=== PATIENT | male | born 1945 | race Caucasian/White ===

== ENCOUNTER 2017-11-22 00:23 | Observation (INO) | payer MEDICARE, SELFPAY ==
[2017-11-22] MEDS ORDERED: Aspirin 325 MG TAB ONE (00:54)
[2017-11-22] MEDS ORDERED: Nitroglycerin 2% Ointment 1 INCH/1 GM Packet ONE (00:54)
[2017-11-22 01:19] LABS: Troponin I 0.158 ng/mL (< 0.028)
[2017-11-22 02:55] VITALS: BMI 30.3
[2017-11-22] MEDS ORDERED: Gabapentin 400 MG CAP PO SCH ×2 (03:15→10:15)
[2017-11-22 04:29] LABS: Troponin I 0.143 ng/mL (< 0.028)
[2017-11-22] MEDS ORDERED: traZODone HCl 50 MG TAB PO PRN (08:31)
[2017-11-22] MEDS ORDERED: HumaLOG 300 UNITS/3 ML VIAL SC PRN (08:35)
[2017-11-22] MEDS ORDERED: Dextrose 5% in Water 1,000 ML IV PRN (08:35)
[2017-11-22] MEDS ORDERED: Dextrose 50% Abboject 50 ML SYRINGE SLOW IVP PRN (08:35)
[2017-11-22] MEDS ORDERED: Furosemide 40 MG/4 ML VIAL SLOW IVP SCH (08:45)
[2017-11-22 08:59] LABS: #Eosinphils 0.2 thou/uL (0.0-0.7); #Lymphocytes 1.7 thou/uL (1.20-3.40); #Neutrophils 5.4 thou/uL (1.40-6.50); %Basophils 0.6 % (0.0-1.0); %Eosinophils 2.5 % (0.0-10.0); %Lymphocytes 20.5 % (21.0-51.0); %Monocytes 11.5 % (0.0-10.0); %Neutrophils 64.9 % (42.0-75.0); Hemoglobin 11.5 g/dL (14.0-18.0); Mean Corpuscular HGB CONC 32.2 g/dL (32.0-36.0); Mean Corpuscular Hemoglobin 29.6 pg (27.0-31.0); Mean Corpuscular Volume 91.9 fl (80.0-94.0); Mean Platelet Volume 8.6 fL (7.4-10.4); Platelet Count 203 thou/uL (130-400); RBC Distribution Width 13.7 % (11.5-14.5); Red Blood Cell (RBC) Count 3.89 mill/uL (4.70-6.10); White Blood Cell (WBC) Count 8.3 thou/uL (4.8-10.8)
[2017-11-22 09:19] LABS: Anion Gap 13 mmol/L (10-20); BUN (Urea Nitrogen) 27 mg/dL (8.4-25.7); Calc. Creatinine Clearance 74 mL/min (70-130); Calcium 8.8 mg/dL (7.8-10.44); Carbon Dioxide 25 mmol/L (23-31); Chloride 102 mmol/L (98-107); Estimated GFR-MDRD 51; Glucose 212 mg/dL (80-115); Potassium 4.5 mmol/L (3.5-5.1); Sodium 135 mmol/L (136-145)
--- NOTE | 2017-11-22 09:51 | RAD ---
PORTABLE CHEST ONE VIEW: Date: 11-22-17 Time: 8:46 a.m. History: FINDINGS: There are changes of median sternotomy. The heart is enlarged. The lungs are expanded without focal a reas of consolidation, pneumothorax, gary pulmonary edema or pleural effusions. IMPRESSION: No acute process. POS: DAXA
--- NOTE | 2017-11-22 10:22 | CT ---
CT OF BRAIN PERFORMED WITHOUT CONTRAST ENHANCEMENT: History: Patient fell approximately one hour ago. Hit head on right side. FINDINGS: There is generalized ventricular and sulcal prominence. There are no signs of intracerebral hemorrhag e or extraaxial fluid collections. The mastoid air cells and visualized sinuses are clear. IMPRESSION: No acute intracranial abnormalities. POS: C
[2017-11-22] MEDS: HumaLOG 300 UNITS/3 ML VIAL SC PRN (12:01)
[2017-11-22] MEDS: Gabapentin 400 MG CAP PO SCH ×2 (14:34→20:55)
--- NOTE | 2017-11-22 15:20 | HP ---
DATE OF ADMISSION: 11/22/2017 PRIMARY CARE PHYSICIAN: Asa VINCENT. CHIEF COMPLAINT: Worsening shortness of breath. HISTORY OF PRESENT ILLNESS: Mr. Babin is a 72-year-old male with past medical history of coronary artery disease, congestive heart failure, diabetes mellitus type 2, and dyslipidemia who pre sented to the emergency room with above-mentioned complaint in [place]. History is mainly obtained by the patient himself, who was a rather poor historian. Rest of history is obtained through the art review from the emergency room physician, which is not also much informative. According to Mr. Babin, he has been feeling short of breath for the last 4 or 5 weeks. He reports c ompliance with his medications. He also has noticed some worsening extremity swelling bilaterally. He denies any flu-like symptoms, but then states he has recently had some sore throat which went away within 1 day. He presented to the [facility] with these complaints and his troponin was found to be elevated at 0.135 with BNP of 1730. He had received 1 dose of IV Lasix and was trans ferred to our facility for further evaluation. He had a 12-lead EKG done in the emergency room at [facility], which showed sinus rhythm with first degree AV block with some PACs. He was given aspiri n and transdermal nitroglycerin and was transferred on the floor for further evaluation and care. At the time of my examination, the patient is feeling a little bit better; however, he is complaining of significant lower extremity pain that is neuropathic in nature and chronic for the patient. He a lso apparently passed out standing in front of the sink earlier this morning and says that he did hit his head. Since then he has undergone a CT scan of the brain which is negative for any sort of hemo rrhage. The patient reports that he easily gets anxiety and panic attacks and had 2 panic attacks actually th is morning. He has calmed down since his home medications have been restarted including Celexa and N eurontin. PAST MEDICAL HISTORY: 1. Coronary artery disease status post CABG, unknown as to which vessels and what was the year. 2. History of congestive heart failure, unknown type. 3. Diabetes mellitus type 2. 4. Dyslipidemia. 5. Hypertension. PAST SURGICAL HISTORY: 1. Right foot surgery. 2. History of CABG x4 vessels in 2006 as per the ER note. PSYCHIATRIC HISTORY: Includes depression. SOCIAL HISTORY: He used to smoke cigarettes, but has quit more than 10 years ago. No history of alc ohol or drug abuse. He is and lives with his and reports independent with ADLs and IADL s. FAMILY HISTORY: He denies any premature coronary artery disease or stroke running in his family. ALLERGIES: Include NEOSPORIN OINTMENT. CURRENT MEDICATIONS: NovoLog 52 units b.i.d., this dose needs to be further confirmed; Lantus unknow n dose; metoprolol succinate 25 mg daily; Celexa 40 mg daily; trazodone 25 mg daily at bedtime as nee ded; lisinopril 20 mg p.o. b.i.d.; Lasix 40 mg daily; melatonin 3 mg at bedtime; B12 daily; aspirin 8 1 mg daily; Crestor 40 mg daily; Imdur ER 30 mg daily; gabapentin 1200 mg p.o. t.i.d.; Ambien as need ed at night; and potassium chloride 10 mEq daily. LABORATORY DATA AND IMAGING DATA: Labs are repeated by myself this morning and include a CBC with WB C of 8.3, platelet count 203, hemoglobin 11.5. Serum chemistries: Sodium 135, BUN 27, creatinine 1. 38 with unknown baseline. Blood sugar anywhere from 200-300. Troponin 0.15 with repeat troponin of 0.143. BNP is 1863. Chest x-ray does not show any overt edema, infiltrate or pleural effusion by my review. PHYSICAL EXAMINATION: VITAL SIGNS: Most recent temperature 98.1, pulse of 72, respirations 20, saturating 96% on room air, and blood pressure 93/62. GENERAL: He was leaning on the side of the bed on the floor when I walked into the room and he repor leigh ann that he is "stretching his legs." He does not appear to be in any acute distress, but is rather sleepy and easily falling asleep while talking to me. Reportedly, he had just taken his "home dose o f the Neurontin." HEENT: Mucous membranes moist and pink. No oropharyngeal exudate or erythema. Head is normocephali c, atraumatic. Pupils are equal, reactive to light and accommodation. Extraocular movement intact. NECK: Supple without any lymphadenopathy, JVD or bruit. CHEST: Clear to auscultation without any wheezing, rales or rhonchi. CARDIOVASCULAR: Rhythm is regular without any murmur, rubs or gallops. ABDOMEN: Soft, nontender, and nondistended. Some abdominal wall edema is palpated. EXTREMITIES: Showed +2 pitting edema bilaterally extending from the toes to almost to his knee with some mild chronic venostasis changes in the skin of the legs. NEUROLOGIC: Examination is nonfocal. SKIN: Free of any rashes or bruises. I feel warm and dry to touch. PSYCHIATRIC: Normal. IMPRESSION AND PLAN: 1. Dyspnea. Most likely acute congestive heart failure exacerbation. No records are available for this patient as most of his care was obtained in [place] with the [employer] law clerk named Magalie. The p eloise could not tell me how to spell that name. Nevertheless, we will go ahead and obtain a transth oracic echocardiogram given the fact that his cardiac enzymes are borderline elevated and also consul t Cardiology for further recommendations. At this time, we will go ahead and give him another dose o f IV Lasix and resume his aspirin, beta igor, and statin at this time. Continue to trend serial c ardiac enzymes. 2. Syncope, unclear etiology. We will check orthostatics. Most likely this is due to somnolence fr om the Neurontin he has received in the morning. He will be monitored on telemetry floor for any arr hythmias as well. Also, obtain a carotid Doppler ultrasound. 3. Lower extremity edema. We will rule out deep venous thrombosis and get Doppler ultrasound for th e legs, most likely these symptoms are because of him being in the fluid overload. 4. Hypertension. Restart home medications as above. 5. History of coronary artery disease, status post coronary artery bypass graft. We will resume his home medications. 6. Acute kidney insufficiency. The patient's baseline creatinine is unknown. Most likely, he has c hronic kidney disease due to diabetes. However, we will monitor closely as he is going to be diurese d. 7. Hyponatremia. We will monitor it clinically. Most likely this is secondary to fluid overload fr om acute congestive heart failure. 8. History of anxiety and depression. Resume his home medications. 9. Diabetes mellitus. The patient and his did not seem to remember the correct dose of insulin for him. At this time, we will just cover him with insulin sliding scale and monitor his blood suga rs closely and confirm the dose of his home medications by the pharmacy. 10. Deep venous thrombosis and gastrointestinal prophylaxis. 11. Add p.r.n. medication orders. DISPOSITION: Mr. Babin is being admitted to telemetry unit for acute CHF exacerbation and also for syncope. Further management will depend upon his clinical course and the recommendations from [facility]. Currently, he is being admitted under observation status, which can change depending on his clinical course during hospitalization.
--- NOTE | 2017-11-22 15:55 | ULT ---
BILATERAL LOWER EXTREMITY VENOUS DUPLEX ULTRASOUND INCLUDING COLOR AND SPECTRAL DOPPLER IMAGING: History: 72-year-old male with restless leg syndrome and edema. FINDINGS: Exam performed from groin to ankle including visualized greater saphenous, common femoral, superficia l femoral, profunda femoral, popliteal, trifurcation, and posterior tibial vein regions. There is phasic flow with normal compressibility and normal augmentation. No intraluminal thrombus. IMPRESSION: No evidence for deep venous thrombosis. POS: DAXA
--- NOTE | 2017-11-22 17:14 | ULT ---
CAROTID DUPLEX ULTRASOUND 11/22/17 INDICATION: Syncope. FINDINGS: The image detail is slightly limited due to patient motion. Peak systolic velocity within the right CCA was 68.4 cm/s and the right ICA is 63.8 cm/s. The right I C/CC ratio is 0.93. Peak systolic velocity within the left CCA was 68.8 cm/s and the left ICA is 64.3 cm/s. The left IC/C C ratio is 0.93. Antegrade flow is seen in both vertebral arteries. There is partially calcified atherosclerotic plaque involving the proximal left internal carotid norberto ry. Mild atherosclerotic plaque is seen in the proximal right ICA. IMPRESSION: No hemodynamically significant stenosis. POS: BÁRBARA
[2017-11-22] MEDS ORDERED: cloNIDine 0.1 MG TAB PO PRN (20:34)
[2017-11-22] MEDS ORDERED: Rosuvastatin 20 MG TAB PO SCH (21:00)
[2017-11-22] MEDS ORDERED: Melatonin 3 MG TAB PO SCH (21:00)
[2017-11-22] MEDS ORDERED: Citalopram 20 MG TAB PO SCH (21:00)
[2017-11-22] MEDS ORDERED: Cyanocobalamin (Vitamin B-12) 1,000 MCG TAB PO SCH (21:00)
[2017-11-22] MEDS ORDERED: hydrALAZINE 20 MG/ML VIAL SLOW IVP PRN (22:04)
--- NOTE | 2017-11-22 22:43 | CON ---
DATE OF ADMISSION: 11/22/2017 DATE OF CONSULTATION: 11/22/2017 INDICATION FOR CONSULTATION: A 72-year-old patient who presented with shortness of breath, has a his tory of some congestive heart failure, has a history of cardiomyopathy, history of myocardial infarct ion, and CABG in the past, suffered a myocardial infarction in 2006. He has been followed by the NH. His family says that he has had a recent cardiac catheterization sometime in the last 2 to 3 years and was told some of his grafts were compromised at that time, but there was no intervention that was indicated at that time. He also was advised by the NH facility that he needed to most likely underg o an AICD implant. He has refused to do so. Today, when he arrived, his troponin I was 0.58, it is now increased up to 0.43. He denied any significant chest discomfort at this time, but mainly compla ined of shortness of breath. He noticed recently that he has been complaining of shortness of breath and decreased energy with increasing fatigue, and edema and has a nonhealing wound on the right foot . Apparently, according to his family, the echocardiogram about a year ago showed an ejection fracti on of 30% to 35%. He has had no recent stress testing that he is aware of, but it did have a cardiac catheterization 2-3 years ago and was advised at that time, he may need to undergo further intervent ion, but no further intervention has been performed according to the patient. PAST MEDICAL HISTORY: Significant for coronary artery disease, possible myocardial infarction, bypas s surgery, history of congestive heart failure, and cardiomyopathy, type 2 diabetes, history of hyper tension and history of dyslipidemia. He has had some right foot surgery, also has a history of depre ssion. ALLERGIES: He is allergic to NEOSPORIN. SOCIAL HISTORY: He has a history of tobacco abuse in the past. He stopped many years ago. He drink s occasionally. MEDICATIONS PRIOR TO ADMISSION: Included citalopram, Lasix 40 mg a day, lisinopril 20 mg b.i.d., met oprolol 100 mg b.i.d., trazodone, vitamin B12, Crestor 40 mg a day, aspirin 81 mg a day, melatonin 3 mg q.p.m., isosorbide mononitrate 10 mg as needed p.r.n., potassium 20 mEq q. day, he says he uses on ly as needed, zolpidem 10 mg q.p.m. REVIEW OF SYSTEMS: A 12 point review of systems he complained no vision in the right eye due to prev ious injuries. He said this is something happened in [place]. He also denied any other recent johnson e except for the Pulmonary was noted in the history of present illness. He had no significant chest discomfort. He has had occasional diarrhea for the last couple of days and he has some shortness of breath and has complained of lower extremity edema. PHYSICAL EXAMINATION: GENERAL: Reveals a middle-aged gentleman who is in no acute distress at this time. He does appear t o be at times somewhat confused. He has complains of some leg cramping and otherwise is seems to be relatively comfortable. VITAL SIGNS: Blood pressure was 93/62. He is afebrile. Heart rate is 73 and regular, respiratory r ate 20. HEENT: Shows head to be normocephalic. He did have a previous injury, I believe, as a child and has a large scar on the left anterior and superior part of the skull in the parietal area. CHEST: Clear to auscultation. I do not hear any significant rales, rhonchi, or wheezing. CARDIOVASCULAR: He has a regular rate and rhythm. He does have a systolic murmur at the apex. ABDOMEN: Shows obesity with positive bowel sounds. I do not palpate any masses or tenderness. EXTREMITIES: Showed no clubbing or cyanosis. Pedal pulses are palpable. He does have 2+ lower extr emity edema from above the knee down below including the feet area. SKIN: Warm and dry. NEUROLOGIC: The patient appears to be somewhat slow, but did not find any gross focal motor deficits . His EKG shows a sinus rhythm with a first degree AV heart block, no acute ST segment changes were noted to indicate acute ischemia. He has some nonspecific ST segment changes. IMPRESSION: 1. Elderly gentleman with history of coronary artery disease, bypass surgery and perhaps graft compr omise with worsening of shortness of breath and congestive heart failure symptoms. I believe his BNP also was elevated at 1863. 2. Congestive heart failure symptoms, we will need to have further diuresis and change some of the m edical management to help with his edema and perhaps the congestive heart failure symptoms will impro ve. 3. Also, history of renal insufficiency. Creatinine was 1.38 with a BUN of 27. He is on an ARB. W e will continue this medicine for now. We will follow his BUN and creatinines carefully. 4. Slight abnormality on the cardiac enzymes, which may be due to demand ischemia. 5. History of coronary artery disease and bypass surgery with the most recent cardiac catheterizatio n 2-3 years ago, at which time, he was told he already has some problems and patient becomes more sta ble, most likely the best option for him to undergo repeat cardiac catheterization to evaluate his co ronary artery status. 6. Cardiomyopathy. He has been advised in the past, he needs to undergo an AICD implant. I have be en discussed with by the NH and he may need to reconsider this. We will review his echocardiogram fo r the evaluation of his ejection fraction. 7. History of hyperlipidemia. He is to continue on his medications. 8. Type 2 diabetes, which will be dealt with by the primary care service. At this time, we will be more than happy to continue to follow the patient with you. We will need to manage his medicines. The patient would best be served by undergoing repeat cardiac catheterization . If this is agreeable with the patient and if this is cleared by the NH facility.
[2017-11-22] MEDS: HYDROcodone/Acetaminophen 5/325 mg Tablet PO PRN (22:56)
[2017-11-23] MEDS: Gabapentin 400 MG CAP PO SCH ×2 (08:05→15:19)
[2017-11-23] MEDS ORDERED: Potassium Chloride 10 MEQ TAB PO PRN (08:41)
[2017-11-23] MEDS ORDERED: Aspirin 81 mg Enteric Coated Tablet PO SCH ×2 (09:00→21:00)
[2017-11-23] MEDS ORDERED: Furosemide 40 MG/4 ML VIAL SLOW IVP SCH (09:00)
[2017-11-23] MEDS ORDERED: Lisinopril 20 MG TAB PO SCH (09:00)
[2017-11-23] MEDS: HYDROcodone/Acetaminophen 5/325 mg Tablet PO PRN (09:08)
[2017-11-23 09:42] LABS: Anion Gap 10 mmol/L (10-20); BUN (Urea Nitrogen) 25 mg/dL (8.4-25.7); Calc. Creatinine Clearance 85 mL/min (70-130); Calcium 9.1 mg/dL (7.8-10.44); Carbon Dioxide 30 mmol/L (23-31); Chloride 101 mmol/L (98-107); Estimated GFR-MDRD 60; Glucose 183 mg/dL (80-115); Potassium 4.2 mmol/L (3.5-5.1); Sodium 137 mmol/L (136-145)
--- NOTE | 2017-11-23 11:34 | PDOC.CTH ---
<Lilian Melvin - Last Filed: 11/23/17 11:31> Cardiology Progress Note - Subjective The pt seen and examined. No overnight events. No cardiac complaints. He reported that BLE edema have improved since he received IV Lasix. Discussed with the pt and family about Sleep Apnea and Cpap and CHF clinic - Objective Vital Signs Temp Pulse Resp BP BP BP Pulse Ox 11/23/17 09:08 142/73 H 11/23/17 08:06 97.5 F L 60 18 11/23/17 07:14 97.5 F L 60 18 142/73 H 95 11/23/17 04:07 97.5 F L 60 18 151/74 H 96 Admit Weight 230 lb 1.6 oz Weight 230 lb 1.6 oz 11/22/17 11/23/17 11/24/17 06:59 06:59 06:59 Intake Total 240 765 Output Total 275 1575 Balance -35 -810 - Physical Examination General/Neuro: alert & oriented x3 Neck: no JVD present Lungs: CTA Heart: RRR Abdomen: soft Extremities: other: (2-3+ pitting BLE edema) - Telemetry Telemetry Rhythm: SR - Labs Result Diagrams: 11/22/17 08:45 11/23/17 09:02 Troponin/CKMB Troponin I 0.143 ng/mL (< 0.028) H 11/22/17 04:03 - Assessment/Plan 1. Acute on Chronic Systolic HF - Echo on 11/22/17 showed EF 30-35%; improving with Lasix 40mg IV daily; on ALEX and BBlocker; 2. CAD with Hx of CABG - stable with ALEX, BBlocker, Statin and ASA; possible cardiac cath if the pt agrees and approval from [facility]. 3. CMY - need AICD placement? 4. HTN - stable with current medication 5. Renal insufficiency - improved; cont. monitor 6. Hyperlipidemia - on Statin 7. DM type 2 - managed by PCP 8. Sleep Apnea - He stopped breathing for least 15 sec more than 3 times within 1-2 mins. Explained about SA and Cpap. He might need SA machine in his room MAR reviewed Review of Systems - Review of Systems Constitutional: reports: no symptoms reported EENTM: reports: no symptoms reported Respiratory: reports: no symptoms reported Cardiac (ROS): reports: no symptoms reported ABD/GI: reports: no symptoms reported : reports: no symptoms reported Musculoskeletal: reports: no symptoms reported <Lane Neil - Last Filed: 11/23/17 18:19> Cardiology Progress Note - Objective Vital Signs Temp Pulse Pulse Pulse Resp BP BP 11/23/17 15:35 98.8 F 58 L 15 11/23/17 11:40 97.3 F L 60 16 11/23/17 09:55 61 59 L 140/74 11/23/17 09:08 142/73 H 11/23/17 08:06 97.5 F L 60 18 11/23/17 07:14 97.5 F L 60 18 BP BP BP Pulse Ox Pulse Ox Pulse Ox 11/23/17 15:35 137/61 94 L 11/23/17 11:40 139/67 92 L 11/23/17 09:55 135/67 90 L 95 11/23/17 09:08 11/23/17 08:06 11/23/17 07:14 142/73 H 95 Admit Weight 230 lb 1.6 oz Weight 230 lb 1.6 oz 11/22/17 11/23/17 11/24/17 06:59 06:59 06:59 Intake Total 002 651 2584 Output Total 275 1575 900 Balance -35 810 425 - Labs Result Diagrams: 11/22/17 08:45 11/23/17 09:02 Troponin/CKMB Troponin I 0.143 ng/mL (< 0.028) H 11/22/17 04:03 - Assessment/Plan Pt. seen and eval. by me. I agree with the A/P by the PRESCRIPTIONIST. He will f/u with the [place] clinic. I discussed with him about watching his fluid intake as well as Na intake. He will continue on his home diuretics.
[2017-11-23] MEDS: HumaLOG 300 UNITS/3 ML VIAL SC PRN ×2 (12:37→18:05)
--- NOTE | 2017-11-23 12:55 | PDOC.PN ---
- Subjective Encounter Start Date: 11/23/17 Encounter Start Time: 12:53 Subjective: feels much better. 1 episode of SOB this am -: leg edema is improving.no CP/COUGH - Objective MAR Reviewed: Yes Vital Signs & Weight: Vital Signs (12 hours) Temp Pulse Resp BP BP BP Pulse Ox 11/23/17 11:40 97.3 F L 60 16 139/67 92 L 11/23/17 09:08 142/73 H 11/23/17 08:06 97.5 F L 60 18 11/23/17 07:14 97.5 F L 60 18 142/73 H 95 11/23/17 04:07 97.5 F L 60 18 151/74 H 96 Weight Admit Weight 230 lb 1.6 oz Weight 230 lb 1.6 oz I&O: 11/22/17 11/23/17 11/24/17 06:59 06:59 06:59 Intake Total 240 765 Output Total 275 1575 Balance -35 -810 Result Diagrams: 11/22/17 08:45 11/23/17 09:02 Additional Labs: Accuchecks 11/23/17 11/23/17 11/22/17 10:39 05:43 20:46 POC Glucose 233 H 133 H 259 H 11/22/17 17:09 POC Glucose 151 H Radiology Reviewed by me: Yes (ECHO-EF 30-35%,carotid doppler-no stenosis b/l) Phys Exam - Physical Examination Constitutional: NAD HEENT: PERRLA, moist MMs, sclera anicteric, oral pharynx no lesions Neck: no nodes, no JVD, supple, full ROM Respiratory: no wheezing, no rales, no rhonchi, clear to auscultation bilateral Cardiovascular: RRR, no significant murmur Gastrointestinal: soft, non-tender, no distention, positive bowel sounds Musculoskeletal: pulses present, edema present (improved some) Neurological: non-focal, normal sensation, moves all 4 limbs Psychiatric: normal affect, A&O x 3 Skin: no rash Dx/Plan (1) Acute on chronic systolic CHF (congestive heart failure) Code(s): I50.23 - ACUTE ON CHRONIC SYSTOLIC (CONGESTIVE) HEART FAILURE Status : Acute (2) Demand ischemia Code(s): I24.8 - OTHER FORMS OF ACUTE ISCHEMIC HEART DISEASE Status: Acute (3) CAD (coronary artery disease) Code(s): I25.10 - ATHSCL HEART DISEASE OF [place] CORONARY ARTERY W/O ANG PCTRS Status: Chronic Comment: CABG X4 2006 (4) HTN (hypertension) Code(s): I10 - ESSENTIAL (PRIMARY) HYPERTENSION Status: Chronic (5) HLD (hyperlipidemia) Code(s): E78.5 - HYPERLIPIDEMIA, UNSPECIFIED Status: Chronic (6) Ischemic cardiomyopathy Code(s): I25.5 - ISCHEMIC CARDIOMYOPATHY Status: Chronic (7) DM2 (diabetes mellitus, type 2) Status: Chronic Qualifiers: Diabetes mellitus complication status: with hyperglycemia (8) Obesity (BMI 30.0-34.9) Code(s): E66.9 - OBESITY, UNSPECIFIED Status: Acute - Plan plan discussed w/ family, PT/OT, incentive spirometry, out of bed/ambulate, DVT proph w/SCDs cont diuresis.strict I/Os.daily weights.cardiology following -: Cont ASA,statin,ALEX-I,nitrate,BB. -: will need [facility] -[facility] if EF does'nt improve post [facility] -: family updated & [facility] * .for now, will diurese some more and DC home when ok w cardiology * Blood sugar high. will add Levemir. Pt doesn't rememebr home doses correctly. * Review of Systems - Review of Systems Constitutional: negative: fever, chills, sweats, weakness, malaise, other ENT: negative: Ear Pain, Ear Discharge, Nose Pain, Nose Discharge, Nose Congestion, Mouth Pain, Mouth Swelling, Throat Pain, Throat Swelling, Other Respiratory: SOB with Excertion. negative: Cough, Dry, Shortness of Breath, Hemoptysis, Pleuritic Pain, Sputum, Wheezing Cardiovascular: edema. negative: chest pain, palpitations, orthopnea, paroxysmal nocturnal dyspnea, light headedness, other Gastrointestinal: negative: Nausea, Vomiting, Abdominal Pain, Diarrhea, Constipation, Melena, Hematochezia, Other Genitourinary: negative: Dysuria, Frequency, Incontinence, Hematuria, Retention , Other Musculoskeletal: negative: Neck Pain, Shoulder Pain, Arm Pain, Back Pain, Hand Pain, Leg Pain, Foot Pain, Other Skin: negative: Rash, Lesions, Prakash, Bruising, Other Neurological: negative: Weakness, Numbness, Incoordination, Change in Speech, Confusion, Seizures, Other - Medications/Allergies Allergies/Adverse Reactions: Allergies Allergy/AdvReac Type Severity Reaction Status Date / Time bacitracin Allergy Rash Verified 11/22/17 02:59 [From Neosporin ([id number])] neomycin Allergy Rash Verified 11/22/17 02:59 [From Neosporin ([id number])] polymyxin B Allergy Rash Verified 11/22/17 02:59 [From Neosporin ([id number])] Medications: Current Medications Hydrocodone Bitart/Acetaminophen ([place] 5/325) 1 tab PO Q4H PRN PRN Reason: Pain Last Admin: 11/23/17 09:08 Dose: 1 tab Aspirin (Ecotrin) 81 mg PO DAILY [facility] Last Admin: 11/23/17 08:05 Dose: 81 mg Aspirin (Ecotrin) 81 mg PO HS [facility] Citalopram Hydrobromide (Celexa) 40 mg PO HS [facility] Last Admin: 11/22/17 20:53 Dose: 40 mg Clonidine (Catapres) 0.1 mg PO Q4H PRN PRN Reason: Hypertension Last Admin: 11/22/17 20:55 Dose: 0.1 mg Cyanocobalamin (Vitamin B-12) 500 mcg PO HS [facility] Last Admin: 11/22/17 20:54 Dose: 500 mcg Dextrose/Water (Dextrose 50%) 25 gm SLOW IVP PRN PRN PRN Reason: Hypoglycemia Furosemide (Lasix) 40 mg SLOW IVP DAILY [facility] Last Admin: 11/23/17 08:06 Dose: 40 mg Gabapentin (Neurontin) 1,200 mg PO TID [facility] Last Admin: 11/23/17 08:05 Dose: 1,200 mg Glucagon (Glucagon) 1 mg IM PRN PRN PRN Reason: Hypoglycemia Hydralazine HCl (Apresoline) 10 mg SLOW IVP PRN PRN PRN Reason: SBP GREATER THAN 160 Dextrose/Water (D5w) 1,000 mls @ 0 mls/hr IV .Q0M PRN; As Directed PRN Reason: Hypoglycemia Insulin Human Lispro (Humalog) 0 units SC .MODERATE SLIDING SC PRN PRN Reason: Moderate Correctional Scale Last Admin: 11/22/17 12:01 Dose: 8 unit Insulin Human Lispro (Humalog) 0 units SC .BEDTIME SLIDING SC PRN PRN Reason: Bedtime Correctional Scale Last Admin: 11/22/17 20:56 Dose: 3 unit Isosorbide Mononitrate (Imdur Er) 30 mg PO [facility] Last Admin: 11/22/17 20:54 Dose: 30 mg Lisinopril (Zestril) 20 mg PO BID [facility] Last Admin: 11/23/17 09:08 Dose: 20 mg Melatonin (Melatonin) 3 mg PO [facility] Last Admin: 11/22/17 20:55 Dose: 3 mg Metoprolol Succinate (Toprol Xl) 50 mg PO DAILY [facility] Last Admin: 11/23/17 08:05 Dose: 50 mg Potassium Chloride (Klor-Con 10) 10 meq PO DAILY PRN PRN Reason: leg cramps Rosuvastatin Calcium (Crestor) 40 mg PO [facility] Last Admin: 11/22/17 20:54 Dose: 40 mg Sodium Chloride (Flush - Normal Saline) 10 ml IVF PRN PRN PRN Reason: Saline Flush Trazodone HCl (Desyrel) 25 mg PO HSPRN PRN PRN Reason: Insomnia
[2017-11-23 15:40] VITALS: BP 137/61; TEMP 98.8
[2017-11-23] MEDS ORDERED: Lisinopril 10 MG TAB PO SCH (21:00)
[2017-11-23] MEDS ORDERED: Insulin Detemir 100 UNITS/ML 10 UNITS in Pre-Filled Syringe 1 EACH SC SCH (21:00)
--- NOTE | 2017-11-24 12:35 | DIS ---
DATE OF ADMISSION: 11/22/2017 DATE OF DISCHARGE: 11/23/2017 CONDITION AT THE TIME OF DISCHARGE: Stable and improved. PRIMARY CARE PHYSICIAN: [facility] in [place]. DISCHARGE DIAGNOSES: 1. Acute on chronic systolic congestive heart failure. 2. Demand ischemia. 3. History of coronary artery disease status post coronary artery bypass graft in the past. 4. Hypertension. 5. Dyslipidemia. 6. Ischemic cardiomyopathy. 7. Diabetes mellitus type 2. 8. Obesity with a body mass index between 30 and 35. DISCHARGE MEDICATIONS: Resumed home medications as follows: Humalog insulin; Lantus insulin as per the home dose, unknown at this time; Toprol-XL 25 mg daily, Celexa 40 mg daily, trazodone 25 mg daily at bedtime, lisinopril 20 mg p.o. b.i.d., Lasix 40 mg daily, melatonin at bedtime, B12 of 500 mcg da linus, aspirin 81 mg daily, Crestor 40 mg daily, Imdur 30 mg daily, gabapentin 1200 mg p.o. t.i.d., Amb ien as needed, Klor-Con 10 mEq daily as needed. PROCEDURES DONE IN THE HOSPITAL: Include, 1. Transthoracic echocardiogram, which shows EF 30-35% with moderate enlargement of the right atrium and mild to moderate tricuspid regurgitation. 2. CT scan of the brain after the patient sustained a fall which was negative for any acute intracra nial abnormalities. 3. Carotid Doppler ultrasound, which did not show any hemodynamically significant stenosis. Lower e xtremity Dopplers which are negative for DVT bilaterally. CONSULTATIONS INHOUSE: Cardiology, Dr. Neil. HISTORY OF PRESENT ILLNESS: Mr. Babin is a 72-year-old male with past medical history of congestive heart failure, coronary artery disease, diabetes, and hypertension with his care received in [facility] who presented to the emergency room with complaints of worsening shortness of breath. He was found to be in acute CHF exacerbation with elevated BNP and borderline elevated troponin. He was admitted under observation status on telemetry unit. Please see admission history and physical f or further details. HOSPITAL COURSE: The patient was diuresed with good results and he was off of oxygen shortly after h is hospitalization. Cardiology was consulted and echocardiogram was repeated. We do not have his re cords from the [facility] with regards to his past cardiac health. However, the patient and family told us t hat he has known history of low ejection fraction. Echo done here confirmed this as well. The patie nt was seen by Cardiology who recommended a cardiac catheterization, but the patient and family decid ed to follow with their auto machinist at [facility] because of the insurance issues. He was diuresed and was back to be euvolemic and baseline. He was discharged with resumption of his home medications. Once again, I have discussed this with the patient and his that they do need to follow up with a auto machinist in [facility] again for a cardiac catheterization and possible AICD placement. The asad holguin has been discharged on aspirin, beta igor, ALEX inhibitor and among other medications. The patient was seen and examined prior to discharge. Please see the hospitalist's progress note fro m the date of discharge for further details including [id number] interaction.
== END 2017-11-23 19:13 | disposition home or self-care (01) ==
LOC: ERS 00:23 → 2SW 00:47
PROVIDERS: ADMIT Internal Medicine Infectious Disease; ATTEND Internal Medicine Infectious Disease
DX: I11.0 Hypertensive heart disease with heart failure (principal); I50.23 Acute on chronic systolic (congestive) heart failure; I25.10 Atherosclerotic heart disease of native coronary artery without angina pectoris; E78.5 Hyperlipidemia, unspecified; I25.5 Ischemic cardiomyopathy; E11.9 Type 2 diabetes mellitus without complications; E66.9 Obesity, unspecified; Z68.30 Body mass index [BMI] 30.0-30.9, adult; Z88.1 Allergy status to other antibiotic agents; Z79.82 Long term (current) use of aspirin; Z79.4 Long term (current) use of insulin; Z79.899 Other long term (current) drug therapy; Z95.1 Presence of aortocoronary bypass graft; Z98.890 Other specified postprocedural states
CPT/HCPCS: 36415; 36416; 70450; 71045; 80048; 83880; 84484; 85025; 93005; 93306; 93798; 93880; 93970; 96374; 96376; G0378; J1815; J1940

== ENCOUNTER 2017-12-14 09:55 | Observation (INO) | payer MEDICARE, OTHER, SELFPAY ==
[2017-12-14] MEDS ORDERED: Gabapentin 400 MG CAP PO SCH (10:30)
[2017-12-14] MEDS ORDERED: Ondansetron HCl/PF 4 MG/2 ML Vial IVP PRN (12:27)
[2017-12-14] MEDS ORDERED: Acetaminophen 325 MG TAB PO PRN (12:27)
[2017-12-14] MEDS ORDERED: Dextrose 5% in Water 1,000 ML IV PRN (12:27)
[2017-12-14] MEDS ORDERED: Dextrose 50% Abboject 50 ML SYRINGE SLOW IVP PRN (12:27)
--- NOTE | 2017-12-14 12:40 | HP ---
PRIMARY CARE PROVIDER: [facility] in [place]. Transfer from [place] [facility] to [facility] ED and referral to [facility] for hypoglycemia. HISTORY OF PRESENT ILLNESS: The patient was found down this morning taken to the emergency room, blo od sugar was undetectable. He was given IV D50 until sugar came up. The patient awoke, he was appro priate. He was transferred here for continuing monitoring. Blood sugar at the time of admission in our hospital is 84. The patient has stable shortness of breath, no chest pain, sleeps flat, occasion ally wakes up short of breath, has chronic swelling in his legs. PAST MEDICAL HISTORY: The patient recently in our hospital. He has coronary artery disease, post-co ronary artery bypass graft, history of congestive heart failure, EF most recently done in November of this year 30% to 35%, diabetes mellitus type 2, dyslipidemia, and hypertension. PAST SURGICAL HISTORY: Right foot surgery, coronary artery bypass graft in 2006. PSYCHIATRIC HISTORY: Includes major depression. SOCIAL HISTORY: Smoked in the past, quit more than 10 years ago. No history of alcohol. , sae lora with . CODE STATUS: FULL CODE status. is surrogate decision maker. FAMILY HISTORY: No premature coronary artery disease or stroke in the family. ALLERGIES: Topical TRIPLE ANTIBIOTIC OINTMENT. CURRENT MEDICATIONS: He states he takes NovoLog 46 units 3 times a day with meals, Celexa 40 mg a da y, trazodone 25 mg at bedtime, lisinopril 20 mg twice a day, Lasix 40 mg a day, aspirin 81 mg a day, Crestor 40 mg a day, Imdur 30 mg a day, gabapentin 1200 mg 3 times a day, Ambien at bedtime p.r.n., a nd potassium chloride 10 mEq a day. REVIEW OF SYSTEMS: Other than the present illness. GENERAL: No fever, sweats, chills, dizziness or fainting. EYES: No double vision, blurred vision, flashing lights. ENT: Allergies. No ear pain, no nasal bleeding. No trouble swallowing. CARDIAC: No chest pain, no paroxysmal, no orthopnea. Apparently occasionally has PND. RESPIRATIONS: Chronically short of breath. He is active with the usual daily activities of life abo ut the house, etc. No cough, wheezing, asthma. GASTROINTESTINAL: He has had very occasional nausea, no vomiting, no abdominal pain, no diarrhea or melena. GENITOURINARY: No hematuria or dysuria. PSYCHIATRIC: Major depression on multiple meds. NEUROLOGICAL: No strokes, seizures, or focal weakness. SKIN: No bruises, bleeding, or rash. HEME/LYMPH: No tender or swollen lymph nodes in axilla, inguinal or cervical area. PHYSICAL EXAMINATION: GENERAL: Alert, oriented and cooperative. VITAL SIGNS: Blood pressure 156/100, pulse 66, respirations 18, temperature 97.6, and O2 sat 95 on r oom air. HEENT: Pupils equal, round, and reactive to light. Extraocular movements are intact. Sclerae white . Tympanic membranes clear. Nose clear. Oral mucous membranes are wet. NECK: Supple, without jugular venous distention, adenopathy or thyromegaly. CHEST: Clear to auscultation and percussion. HEART: Regular rate and rhythm. First and second heart sounds are clear. There are no murmurs or g allops. ABDOMEN: Soft, bowel sounds normal. No hepatosplenomegaly, no mass, no rebound, no bruits. EXTREMITIES: Reveal no cyanosis or clubbing. He had 2+ edema. PULSES: Carotid, radial, and femoral pulses intact. Pedal pulses diminished. SKIN: Warm and dry without bruises or rash. LYMPHATIC SURVEY: No tender or swollen lymph nodes in axilla, inguinal or cervical area. NEUROLOGIC: Cranial nerves II-XII are intact. Deep tendon reflexes are symmetric. Sensation decrea sed in feet. Studies done at our facility. Blood sugar 88. LABORATORY AND X-RAY FINDINGS: Studies done at our facility - blood sugar 88. Studies done in [place] - Sodium 141, potassium 4.1, BUN 19, creatinine 1.2. CK 0.6, white count 9 .79, hemoglobin 12.6, platelet count 167,000. Multiple x-rays for trauma were done, which were repor leigh ann as negative. EKG: Regular sinus rhythm, nonspecific ST abnormality, reviewed by , first kelly harrell AV block. PLAN: Every 4 hours Accu-Cheks. Continue the D5 at 70 mL an hour. He will continue selected home m edicines. He is aware that he will probably be sent home tomorrow morning. He has a planned cardiac catheterization as an outpatient with the [facility] in [place] on Monday.
[2017-12-14 13:00] VITALS: BMI 30.7
[2017-12-14 15:41] LABS: Troponin I 0.533 ng/mL (< 0.028)
[2017-12-14] MEDS ORDERED: Zolpidem Tartrate 5 MG TAB PO PRN (15:44)
[2017-12-14] MEDS ORDERED: Potassium Chloride 10 MEQ TAB PO PRN (15:44)
[2017-12-14] MEDS ORDERED: traZODone HCl 50 MG TAB PO PRN (15:44)
[2017-12-14] MEDS ORDERED: Aspirin 325 MG TAB PO SCH (16:00)
[2017-12-14] MEDS ORDERED: HumaLOG 300 UNITS/3 ML VIAL SC PRN (17:56)
[2017-12-14] MEDS: Gabapentin 400 MG CAP PO SCH (19:34)
[2017-12-14] MEDS: Lisinopril 20 MG TAB PO SCH (19:35)
[2017-12-14] MEDS ORDERED: Citalopram 10 MG TAB PO SCH (21:00)
[2017-12-14] MEDS ORDERED: Rosuvastatin 20 MG TAB PO SCH (21:00)
[2017-12-14] MEDS ORDERED: Aspirin 81 mg Enteric Coated Tablet PO SCH (21:00)
[2017-12-14 21:42] LABS: Critical Call Chem Troponin I RESULT DECREASING; Troponin I 0.588 ng/mL (< 0.028)
[2017-12-15 05:00] LABS: #Basophils 0.1 thou/uL (0.0-0.2); #Eosinphils 0.1 thou/uL (0.0-0.7); #Lymphocytes 2.1 thou/uL (1.20-3.40); #Monocytes 0.9 thou/uL (0.11-0.59); #Neutrophils 6.6 thou/uL (1.40-6.50); %Basophils 0.7 % (0.0-1.0); %Eosinophils 0.5 % (0.0-10.0); %Lymphocytes 21.7 % (21.0-51.0); %Monocytes 9.7 % (0.0-10.0); %Neutrophils 67.3 % (42.0-75.0); Hemoglobin 11.2 g/dL (14.0-18.0); Mean Corpuscular HGB CONC 32.2 g/dL (32.0-36.0); Mean Corpuscular Hemoglobin 28.7 pg (27.0-31.0); Mean Corpuscular Volume 89.1 fl (80.0-94.0); Mean Platelet Volume 9.2 fL (7.4-10.4); Platelet Count 168 thou/uL (130-400); RBC Distribution Width 15.1 % (11.5-14.5); Red Blood Cell (RBC) Count 3.91 mill/uL (4.70-6.10); White Blood Cell (WBC) Count 9.7 thou/uL (4.8-10.8)
[2017-12-15 05:22] LABS: Anion Gap 11 mmol/L (10-20); BUN (Urea Nitrogen) 39 mg/dL (8.4-25.7); Calc. Creatinine Clearance 89 mL/min (70-130); Calcium 8.7 mg/dL (7.8-10.44); Carbon Dioxide 26 mmol/L (23-31); Chloride 100 mmol/L (98-107); Estimated GFR-MDRD 62; Glucose 138 mg/dL (80-115); Potassium 4.4 mmol/L (3.5-5.1); Sodium 133 mmol/L (136-145)
[2017-12-15 07:46] VITALS: BP 124/64; TEMP 98.3
[2017-12-15] MEDS: Lisinopril 20 MG TAB PO SCH (08:28)
[2017-12-15] MEDS: Gabapentin 400 MG CAP PO SCH (08:28)
--- NOTE | 2017-12-15 08:38 | DIS ---
TRANSFER OF CARE NOTE PRIMARY CARE PHYSICIAN: [facility] DATE OF ADMISSION: 12/14/2017 DATE OF DISCHARGE: 12/15/2017 DISCHARGE DISPOSITION: Home. FINAL DIAGNOSES: 1. Hypoglycemia, resolved. 2. Type 2 diabetes mellitus, rail car mechanic insulin use. 3. Coronary artery disease. 4. Hypertension. DISCHARGE MEDICATIONS: Potassium chloride 20 mEq a day, trazodone 25 mg at bedtime, Crestor 40 mg a day, melatonin 3 mg at bedtime, Imdur 30 mg a day, aspirin 81 mg a day, Ranexa 500 mg twice a day, fe nofibrate 145 mg a day, Flexeril 10 mg a day p.r.n., metoprolol 25 mg a day, lisinopril 20 mg twice a day, gabapentin 1200 mg 3 times a day, Lasix 40 mg a day, Celexa 40 mg at bedtime, Ambien 5 mg at be dtime p.r.n., NovoLog per my directions. ALLERGIES: Allergic to TRIPLE ANTIBIOTIC CREAM. PENDING AT THE TIME OF DISCHARGE: Nothing. CODE STATUS: Full. HOSPITAL COURSE: The patient referred to [facility] after being transferred from [facility] for hypoglycemia. The patient reports he takes 46 units of NovoLog 3 times a day with meals. The patient has been unsuccessful in bringing me his medicines. We have held his insulin. His blood sugars since admission have been 86, 132, 68, 84, 168, 157, 224, 272, 138, 130 this morning. He had no chest pain, but his troponins were elevated at 0.69 and 0.588. He was in here 2 weeks ago with e levated troponins. The [facility] did not clear him to have a cardiac catheterization here. He is scheduled to have a cardiac catheterization this coming Monday at the [facility] in [place]. I have had multiple dis cussions with this gentleman about his insulin dose and I have asked him to take no more than 20 unit s of NovoLog twice a day with morning and evening meals, [facility] to discuss dosing. Hemoglobin A1c was not done because it is difficult to relate a 90-day average to his curren t symptoms. He was not given the large doses of insulin during his previous stay here and had no tro uble with hyperglycemia. Of note, CBC: White count 9.7, hemoglobin 11.2, platelet count 168,000. Basic metabolic profile: S odium 133, potassium 4.4, BUN 39, creatinine 1.16. CONSULTATIONS: None. PROCEDURES: No procedures. As mentioned before, the patient has been asked [facility] about [facility]. He is to keep his appointment this coming Monday at the [facility] for a cardiac catheterization.
[2017-12-15] MEDS ORDERED: Furosemide 40 MG TAB PO SCH (09:00)
[2017-12-15] MEDS ORDERED: Enoxaparin Sodium 40 MG/0.4 ML SYRINGE SC SCH (09:00)
[2017-12-15] MEDS ORDERED: Fenofibrate Nanocrystallized 145 MG TAB PO SCH (09:00)
== END 2017-12-15 10:00 | disposition home or self-care (01) ==
LOC: ERS 09:55 → 2SW 11:19
PROVIDERS: ADMIT Internal Medicine; ATTEND Internal Medicine
DX: E11.649 Type 2 diabetes mellitus with hypoglycemia without coma (principal); I25.10 Atherosclerotic heart disease of native coronary artery without angina pectoris; I11.0 Hypertensive heart disease with heart failure; I50.9 Heart failure, unspecified; F32.9 Major depressive disorder, single episode, unspecified; Z79.4 Long term (current) use of insulin; Z79.82 Long term (current) use of aspirin; Z79.899 Other long term (current) drug therapy; Z88.1 Allergy status to other antibiotic agents; Z95.1 Presence of aortocoronary bypass graft; Z98.890 Other specified postprocedural states; Z87.891 Personal history of nicotine dependence
CPT/HCPCS: 36415; 36416; 80048; 84484; 85025; 96360; 96361; A4216; G0378; J1650

== ENCOUNTER 2019-01-10 01:11 | Inpatient (IN) | payer MEDICARE, OTHER ==
[2019-01-10] MEDS ORDERED: Metoprolol Tartrate 5 MG/5 ML VIAL ONE (02:00)
[2019-01-10] MEDS ORDERED: Nitroglycerin 2% Ointment 1 INCH/1 GM Packet ONE (02:00)
[2019-01-10] MEDS ORDERED: Aspirin 325 MG TAB ONE (02:00)
[2019-01-10 02:15] LABS: Anion Gap 17 mmol/L (10-20); BUN (Urea Nitrogen) 28 mg/dL (8.4-25.7); Calc. Creatinine Clearance 0 mL/min (70-130); Calcium 8.7 mg/dL (7.8-10.44); Carbon Dioxide 22 mmol/L (23-31); Chloride 98 mmol/L (98-107); Estimated GFR-MDRD 38; Glucose 437 mg/dL (83-110); Potassium 3.7 mmol/L (3.5-5.1); Sodium 133 mmol/L (136-145)
[2019-01-10] MEDS ORDERED: HUMULIN R 100 UNITS in Sodium Chloride 0.9% 100 ML IVPB SCH ×2 (02:15→04:00)
[2019-01-10 02:51] LABS: CKMB 14.5 ng/mL (0-6.6)
[2019-01-10] MEDS ORDERED: hydrALAZINE 20 MG/ML VIAL SLOW IVP PRN (03:49)
[2019-01-10] MEDS ORDERED: Ondansetron PF 4 MG/2 ML Vial IVP PRN (03:49)
[2019-01-10] MEDS ORDERED: CCU Electrolyte Replacement 1 EACH IVPB ONE (03:49)
[2019-01-10] MEDS ORDERED: NS 0.9% w/ 20 MEQ KCL 1,000 ML IV PRN ×2 (03:49)
[2019-01-10] MEDS ORDERED: Acetaminophen 500 MG TAB PO PRN (03:49)
[2019-01-10] MEDS ORDERED: Dextrose 5 %-0.45 % NaCl 1,000 ML IV PRN (03:49)
[2019-01-10] MEDS ORDERED: Ondansetron ODT 4 MG TAB PO PRN (03:49)
[2019-01-10] MEDS ORDERED: Sodium Chloride 0.9% 1,000 ML IV PRN ×4 (03:49)
[2019-01-10] MEDS ORDERED: Potassium Phosphate 9 MMOL in Sodium Chloride 0.9% 100 ML IVPB PRN (03:56)
[2019-01-10] MEDS ORDERED: Magnesium Oxide 400 MG TAB PO PRN ×2 (03:56)
[2019-01-10] MEDS ORDERED: Magnesium 2 GM/50 ML 2 GM in Premix Bag 1 BAG IVPB PRN (03:56)
[2019-01-10] MEDS ORDERED: Potassium Chloride 20 MEQ TAB PO PRN (03:56)
[2019-01-10] MEDS ORDERED: CCU ELECTROLYTE REPLACEMENT PROTOCOL FS PRN (03:56)
[2019-01-10] MEDS ORDERED: Potassium Phosphate 15 MMOL in Sodium Chloride 0.9% 250 ML 250 ML IV PRN (03:56)
[2019-01-10] MEDS ORDERED: PHOS-NAK 1 PKT PACK PO PRN ×2 (03:56)
[2019-01-10] MEDS ORDERED: Potassium Phosphate 12 MMOL in Sodium Chloride 0.9% 250 ML 250 ML IV PRN (03:56)
[2019-01-10] MEDS ORDERED: Potassium Chloride 40 MEQ in Premix Bag 1 BAG IVPB PRN (03:56)
[2019-01-10] MEDS ORDERED: Potassium Chloride 40 MEQ in Sodium Chloride 0.9% 250 ML 250 ML IVPB PRN (03:56)
[2019-01-10] MEDS: D5 1/2 NS w/20 mEq KCL 1,000 ML IV PRN ×2 (04:22→09:40)
--- NOTE | 2019-01-10 06:01 | HP ---
PRIMARY CARE PROVIDER: [facility] in [place], [place]. CHIEF COMPLAINT: Vomiting. HISTORY OF PRESENT ILLNESS: This is a 73-year-old male, who presents to [facility] Emergency Department and transferred from [facility] [facility] where the patient initially presented complaining of greater than 10 episodes of emesis earlier in the evening. The patient states the nausea and vomiting began without warning with multiple bouts of emesis starting at approximately 4:00 am on 01/09/2019. The patient states he has been feeling well up until this time. Denied any family members with similar symptoms, recent travel history, or change to his chronic medication regimen. The patient denied any alcohol intake exposure history, chemical exposure, or chemical exposures. The patient denied any fever, chills, dysuria, or change to bowel habits. The patient states he has been admitted remotely in the past for diabetic complications requiring hospitalization and insulin infusion. The patient does state he is compliant with his medication regimen and is monitored routinely through his primary clinic at the [facility] in [place], [place]. In the emergency room, the patient was noted with hyperglycemia with initial glucose over 600. The patient was placed on insulin infusion after a bolus of regular insulin and given IV fluids. The patient also complained of left upper chest pain after multiple episodes of emesis. The patient states he had no chest pain prior to vomiting episodes. The patient does admit to history of coronary artery disease, status post cardiac stent placement. The patient also states he had a coronary artery bypass grafting x4 vessels in 2006. In the emergency room, the patient received aspirin 325 mg with additional transdermal nitroglycerin, Lopressor 5 mg IV push x1 and 8 units of regular insulin IV infusion. PAST MEDICAL HISTORY: 1. Diabetes mellitus type 2, insulin requiring. 2. Coronary artery disease. 3. Hypertension. 4. Congestive heart failure with ejection fraction of 30% to 35% range. 5. Dyslipidemia. 6. Major depression. PAST SURGICAL HISTORY: 1. Status post right foot surgery. 2. Status post coronary artery bypass grafting x4 vessels in 2006. CURRENT MEDICATIONS: Based on previous admission in 2018. 1. Enteric-coated aspirin 81 mg p.o. at bedtime. 2. Celexa 40 mg p.o. at bedtime. 3. Vitamin B12 500 mcg p.o. at bedtime. 4. Flexeril 10 mg p.o. t.i.d. p.r.n. 5. Fenofibrate 145 mg p.o. daily. 6. Lasix 40 mg p.o. daily. 7. Gabapentin 1200 mg p.o. t.i.d. 8. Isosorbide mononitrate 30 mg p.o. at bedtime. 9. Lisinopril 20 mg p.o. b.i.d. 10. Melatonin 3 mg p.o. at bedtime. 11. Metoprolol succinate 25 mg p.o. daily. 12. Potassium chloride 20 mEq p.o. daily p.r.n. 13. Ranexa 500 mg p.o. b.i.d. 14. Crestor 40 mg p.o. at bedtime. 15. Trazodone 25 mg p.o. at bedtime p.r.n. 16. NovoLog 20 units subcutaneously b.i.d. 17. Ambien 5 mg p.o. at bedtime p.r.n. ALLERGIES: NEOSPORIN. FAMILY HISTORY: No early coronary artery disease per the patient's report. SOCIAL HISTORY: The patient resides in [place], [place]. The of the armed forces. Remote tobacco use quitting over 10 years prior to this evaluation. No alcohol or illicit drug use. . REVIEW OF SYSTEMS: REVIEW OF SYSTEMS: CONSTITUTIONAL: Negative for weight loss or gain, ability to conduct usual activities. SKIN: Negative for rash, itching. EYES: Negative for double vision, pain. ENT/MOUTH: Negative for nose bleeding, neck stiffness, pain, tenderness. CARDIOVASCULAR: Negative for palpitations, dyspnea on exertion, orthopnea. RESPIRATORY: Negative for shortness of breath, wheezing, cough, hemoptysis, fever or night sweats. GASTROINTESTINAL: Negative for poor appetite, abdominal pain, heartburn, nausea, vomiting, constipation, or diarrhea. GENITOURINARY: Negative for urgency, frequency, dysuria, nocturia. MUSCULOSKELETAL: Negative for pain, swelling. NEUROLOGIC/PSYCHIATRIC: Negative for anxiety, depression. ALLERGY/IMMUNOLOGIC: Negative for skin rash, bleeding tendency. Otherwise, negative except as stated per HPI. PHYSICAL EXAMINATION: VITAL SIGNS: On admission, blood pressure 164/79, pulse 86, respiratory rate 16, temperature 98.4 degrees Fahrenheit, O2 saturation 98% on room air. GENERAL APPEARANCE: This is a 73-year-old male, alert and oriented x3, pleasant, responsive, in no acute distress. HEENT: Pupils are equal, round, reactive to light and accommodation. Extraocular muscles are intact. No scleral icterus. No conjunctival injection. Nares patent. OP is clear. Oral mucosa dry. NECK: Supple. No cervical adenopathy. No thyromegaly. No carotid bruits. No JVD appreciated. Cervical spine with full active and passive range of motion. No meningeal signs noted. CHEST: Lungs are clear to auscultation bilaterally. CARDIOVASCULAR: S1 and S2 without noted murmur, rub, or gallop. ABDOMEN: Rounded, soft, nontender, and nondistended. Bowel sounds are positive in all 4 quadrants. There is no hepatosplenomegaly. No abdominal bruits. No rebound or guarding appreciated. EXTREMITIES: Warm and dry with fair turgor. No clubbing, cyanosis, or asymmetric edema appreciated. Pulses palpable distally at the dorsalis pedis, posterior tibial, and popliteal arteries bilaterally. Capillary refill less than 2 seconds. NEUROLOGIC: Cranial nerves 2 through 12 are grossly intact. No focal or lateralizing signs appreciated. The patient not observed ambulatory during this exam. Moves all extremities on command. PERTINENT LAB AND X-RAY FINDINGS: Sodium 133, potassium 3.7, chloride 98, CO2 of 22, anion gap 17, BUN 28, creatinine 1.76, estimated GFR of 38, glucose 437 originally greater than 600. Troponin I 0.105. CBC showed a white blood cell count of 8.1, hemoglobin 12.3, hematocrit 38, and platelet count 135. Urinalysis positive for glucose, moderate blood. EKG dated 01/10/2019, by my interpretation shows sinus mechanism with heart rates in the 80s. Normal R-wave progression noted in the precordial leads. Normal axis. ST depression noted in V3 through V6. ASSESSMENT AND PLAN: 1. Diabetic ketoacidosis. The patient will be admitted to the Critical Care Unit. We will continue DKA protocol. No current venous or arterial blood gas evaluation noted. We will continue general diabetic ketoacidosis protocol with aggressive IV fluid hydration and serial monitoring. Repeat beta hydroxybutyrate level. 2. Acute kidney injury. Suspect secondary to dehydration and volume depletion. Continue IV fluids as outlined previously and avoid nephrotoxic agents and limit contrast exposure. Repeat creatinine in the a.m. 3. Hyponatremia. Suspect secondary to hyperglycemia. We will continue normal saline infusion and repeat sodium level in the a.m. 4. Elevated troponin I. Suspect demand ischemia of the myocardium in the context of diabetic ketoacidosis. No evidence to suggest acute coronary syndrome. We will continue trending troponin I q.3 hours x2. 5. Nausea and vomiting secondary to #1. We will continue antiemetics with Zofran 4 mg IV q.6 hours p.r.n. Clear liquids as tolerated. Continue IV fluids. 6. Hypertension. Resume home antihypertensive regimen and monitor clinical response. The patient may need additional titration of his antihypertensive regimen on an ongoing basis after discharge. 7. Prophylaxis. SCDs while in bed. Pepcid 20 mg p.o. b.i.d. 8. Code status is full. Surrogate medical decision maker is the patient's spouse. Job ID: [id number]
[2019-01-10 06:14] LABS: Anion Gap 14 mmol/L (10-20); BUN (Urea Nitrogen) 28 mg/dL (8.4-25.7); Calc. Creatinine Clearance 59 mL/min (70-130); Calcium 8.4 mg/dL (7.8-10.44); Carbon Dioxide 23 mmol/L (23-31); Chloride 102 mmol/L (98-107); Estimated GFR-MDRD 45; Glucose 173 mg/dL (83-110); Potassium 3.8 mmol/L (3.5-5.1); Sodium 135 mmol/L (136-145)
[2019-01-10 06:24] LABS: Troponin I 0.934 ng/mL (< 0.028)
[2019-01-10 08:28] LABS: Anion Gap 11 mmol/L (10-20); BUN (Urea Nitrogen) 28 mg/dL (8.4-25.7); Calc. Creatinine Clearance 65 mL/min (70-130); Calcium 8.4 mg/dL (7.8-10.44); Carbon Dioxide 26 mmol/L (23-31); Chloride 102 mmol/L (98-107); Estimated GFR-MDRD 50; Glucose 85 mg/dL (83-110); Potassium 3.7 mmol/L (3.5-5.1); Sodium 135 mmol/L (136-145)
[2019-01-10 08:56] LABS: Troponin I 2.949 ng/mL (< 0.028)
[2019-01-10] MEDS ORDERED: Prevnar 13-Val Conj/PF 0.5 ML SYRINGE IM ONE (09:00)
[2019-01-10] MEDS: Gabapentin 400 MG CAP PO SCH ×3 (09:42→20:51)
[2019-01-10] MEDS: Famotidine 20 MG TAB PO SCH ×2 (09:42→20:52)
[2019-01-10] MEDS ORDERED: Aspirin 81 mg Enteric Coated Tablet PO SCH ×2 (10:00→10:30)
[2019-01-10] MEDS ORDERED: Clopidogrel Bisulfate 75 MG TAB PO SCH (10:30)
[2019-01-10] MEDS: Clopidogrel Bisulfate 75 MG TAB PO SCH (10:46)
--- NOTE | 2019-01-10 10:59 | PDOC.PN ---
- Subjective Encounter Start Date: 01/10/19 Encounter Start Time: 10:57 Ms. Babin was seen today in follow-up of DKA. He says the nausea and vomiting has resolved. He admits to having chest pain prior to becoming sick. - Objective Resuscitation Status - Order Detail: 01/10/19 03:42 Resuscitation Status Routine Resuscitation Status: FULL: Full Resuscitation MAR Reviewed: Yes Vital Signs & Weight: Vital Signs (12 hours) Temp Pulse Ox 01/10/19 04:00 98.5 F 01/10/19 03:10 98 Weight Weight 208 lb Most Recent Monitor Data Heart Rate from ECG 67 NIBP 136/69 NIBP BP-Mean 91 Respiration from ECG 14 SpO2 100 I&O: 01/09/19 01/10/19 01/11/19 06:59 06:59 06:59 Intake Total 48 704 Output Total 200 Balance -152 704 Result Diagrams: 01/10/19 07:56 Additional Labs: Accuchecks 01/10/19 01/10/19 01/10/19 09:40 08:04 07:03 POC Glucose 128 H 111 H 119 H 01/10/19 01/10/19 01/10/19 06:03 05:04 04:08 POC Glucose 166 H 232 H 282 H 01/10/19 01/10/19 03:09 02:04 POC Glucose 389 H 456 H Phys Exam - Physical Examination HEENT: PERRLA Respiratory: no wheezing, no rales, no rhonchi, clear to auscultation bilateral Cardiovascular: RRR, no significant murmur, no rub Gastrointestinal: soft, non-tender, no distention, positive bowel sounds Musculoskeletal: no edema, pulses present Dx/Plan (1) DKA, type 2 Code(s): E11.10 - TYPE 2 DIABETES MELLITUS WITH KETOACIDOSIS WITHOUT COMA Status: Acute (2) NSTEMI (non-ST elevated myocardial infarction) Code(s): I21.4 - NON-ST ELEVATION (NSTEMI) MYOCARDIAL INFARCTION Status: Acute (3) CAD (coronary artery disease) Code(s): I25.10 - ATHSCL HEART DISEASE OF [place] CORONARY ARTERY W/O ANG PCTRS Status: Chronic Comment: CABG X4 2006 (4) HTN (hypertension) Code(s): I10 - ESSENTIAL (PRIMARY) HYPERTENSION Status: Chronic - Plan * DKA- resolved. This may have been precipitated by an NSTEMI. He can be transitioned off the insulin drip * He is NPO, will therefore change him to D5NS, and place him on a sliding scale * Possible NSTEMI- awaiting the next troponin level- and Fur Farmer will determine the next steps * .
[2019-01-10] MEDS ORDERED: Dextrose 50% Abboject 50 ML SYRINGE SLOW IVP PRN (11:07)
[2019-01-10] MEDS ORDERED: Dextrose 5% in Water 1,000 ML IV PRN (11:07)
[2019-01-10] MEDS ORDERED: Dextrose 5 % And 0.9 % NaCl 1,000 ML IV SCH (11:15)
[2019-01-10] MEDS: HumaLOG 300 UNITS/3 ML VIAL SC PRN ×3 (12:08→20:49)
[2019-01-10 12:09] LABS: Anion Gap 15 mmol/L (10-20); BUN (Urea Nitrogen) 27 mg/dL (8.4-25.7); Calc. Creatinine Clearance 60 mL/min (70-130); Calcium 8.4 mg/dL (7.8-10.44); Carbon Dioxide 23 mmol/L (23-31); Chloride 101 mmol/L (98-107); Estimated GFR-MDRD 46; Glucose 168 mg/dL (83-110); Potassium 4.4 mmol/L (3.5-5.1); Sodium 135 mmol/L (136-145)
[2019-01-10 12:13] LABS: Troponin I 5.898 ng/mL (< 0.028)
[2019-01-10] MEDS ORDERED: Heparin 5,000 UNITS/ML VIAL SC SCH ×2 (13:45→14:00)
--- NOTE | 2019-01-10 14:55 | CON ---
DATE OF CONSULTATION: 01/10/2019 INDICATION FOR CONSULTATION: A 73-year-old patient with a history of known coronary artery disease and status post bypass surgery, also status post angioplasty and stent placement to the saphenous vein graft of an obtuse marginal branch of left circumflex in June 2018. He also underwent repeat angioplasty and stent placement to uncertain vessel, but most likely the distal LAD in August of 2018. We still awaiting the final cardiac cath report to determine exactly what was performed. At that time on his last cardiac catheterization, he was found to have severe disease and a small right coronary artery and also had a completely occluded saphenous vein graft to the distal posterior descending artery, most likely the same vessel. He also had a completely occluded saphenous vein graft to diagonal branch. He had an 80% stenosis in the saphenous vein graft to the obtuse marginal branch, which underwent angioplasty and stent placement. At the time of cardiac catheterization in June, he was noted to have 99% proximal LAD stenosis at the bifurcation to the diagonal branch, which is 100% occluded by the graft. Also, there was SIBLEY to the left anterior descending which was patent without evidence of stenosis, but the distal left anterior descending artery was said to have stenosis. It was not intervened upon at that time. I suspect this may be the vessel of the stenosis that underwent our lesion and underwent angioplasty and stent placement in August. He had been doing relatively well, but started having chest discomfort in October. In November, he had not told his panama hat blocker. He has been followed by a panama hat blocker in [place], [place]. He has also been followed by the [place]. I saw the patient, I believe once in the office. After I saw the patient, he did have a cardiac catheterization apparently by the [place] and was told that everything was okay and there was no intervention necessary. He then developed more chest pain and was sent to [place], where he underwent angioplasty and stent placement in the circumflex and the results of the cardiac catheterization are as above. He had continued to have some chest discomfort a month or so later after having the stents placed, but had not yet spoken to his panama hat blocker in [place] about this. The patient has not been following up with me. Also yesterday or the day before, he started developing nausea and vomiting. Blood sugars were elevated. He had been continuing to take his medications. He eventually presented to the emergency room with blood sugars elevated. He did not appear to be in any significant DKA. He also has some renal insufficiency, but his troponin I was 0.105 at 1 o'clock this morning with an MB of 14.5. The repeated level shows troponin has increased up to 0.9 and then 2 hours later had increased up to 2.9. His EKG still shows some ST-segment depression in the anterior and lateral leads. I am suspicious that he may have occluded his distal left anterior descending artery. He denies any chest pain at this time. He did have chest pain previously. Earlier this month, he had been having chest discomfort but again had not sought further cardiac evaluation. At this time, he is relatively comfortable. He is sitting in the chair. His EKG still shows ST-segment depressions. We will continue to monitor him very carefully. If the enzymes continue to increase, then he may need to undergo more urgent cardiac catheterization for evaluation of saphenous vein grafts and quechan vessels again. PAST MEDICAL HISTORY: Significant for coronary artery disease as noted above with bypass surgery, angioplasty and stent. He has diabetes, insulin-requiring. He has a history of hypertension. He has history of congestive heart failure/cardiac catheterization showed decreased ejection fraction of 30% to 35%. He does not have an AICD. He has dyslipidemia. He has history of depression. PAST SURGICAL HISTORY: Other than having bypass surgery, he has had foot surgery. MEDICATIONS: Include: 1. Enteric-coated aspirin 81 mg a day. 2. Plavix 75 mg a day. 3. Celexa 40 mg q.p.m. 4. Flexeril 10 mg t.i.d. 5. B12 vitamins. 6. Fenofibrate 145 mg a day. 7. Lasix 40 mg a day. 8. Gabapentin 1200 mg t.i.d. 9. Lisinopril 20 mg b.i.d. 10. Isosorbide mononitrate 30 mg daily. 11. Melatonin 3 mg q.p.m. 12. Metoprolol succinate 25 mg p.o. daily. 13. Potassium 20 mEq daily p.r.n. 14. Ranexa 500 mg b.i.d. 15. Crestor 40 mg q.p.m. 16. Trazodone 25 mg q.p.m. 17. Insulin as subcu b.i.d., 20 units of NovoLog. 18. Ambien 5 mg p.o. q.p.m. p.r.n. as needed. ALLERGIES: ALLERGIC TO NEOSPORIN. FAMILY HISTORY: There is no early family history of coronary artery disease. SOCIAL HISTORY: The patient lives in [place], [place]. He is a . He has smoked in the past, more than 10 years ago. He has no history of significant alcohol abuse. He is . He has children, who are alive and well. REVIEW OF SYSTEMS: As noted above for nausea and vomiting, and also positive for chest pain. Otherwise, the review of systems is unremarkable. PHYSICAL EXAMINATION: GENERAL: Reveals a well-developed, well-nourished gentleman, who is in no acute distress at this time. He is alert. He is oriented. He is sitting up in the chair. VITAL SIGNS: Blood pressure is 136/69, heart rate is 67, respiratory rate is 14. He is afebrile. HEENT: Reveals head to be normocephalic and atraumatic. Carotid pulses are present. I did not hear any significant bruits. CHEST: Clear to auscultation without rales, rhonchi, or wheezing. CARDIOVASCULAR: Reveals a regular rate and rhythm. Normal S1 and S2. Occasionally, he has an ectopy noted. There were no significant murmurs, heaves, thrills, bruits or rubs. ABDOMEN: Soft, flat, and nontender. Positive bowel sounds are present. EXTREMITIES: Show no clubbing, no cyanosis, no edema. Pedal pulses are somewhat decreased. NEUROLOGIC: The patient appears to be fully intact. LABORATORY DATA: As above for the cardiac enzymes. His creatinine on admission was 1.76 and this has decreased down now to 1.4. BUN was 28. Sodium was 135. Blood sugar has been elevated, but is now down to 119. Hemoglobin was not measured. We will need to obtain his WBC, as well as the hematocrit. These are not obtained at this time. IMPRESSION: 1. EKG shows sinus rhythm with ST-segment depression in V3 through V5 as well as some T-wave inversions in I and aVL. The original EKG was very similar with ST-segment depressions. There is no ST-segment elevation noted. At this time, we will continue to monitor the enzymes very carefully. We will stabilize the patient and see how he does. We will await the records for the cardiac catheterization from [facility] on the last cardiac catheterization that was performed in August. If necessary, the patient may need to undergo repeat cardiac catheterization, highly possible. He has closed off his distal left anterior descending artery. This may be somewhat difficult procedure as he does have a SIBLEY on the LAD already. We need to probably access the distal left anterior descending artery via putting a balloon catheter through the left internal mammary artery which is somewhat risky itself, which may cause further damage if there is no occlusion of the SIBLEY at this time. We will be more than happy to continue to follow this with the patient very carefully. 2. Diabetes, which will be dealt with by the primary care service. 3. Hypertension, which is under reasonable control at this time. 4. Dyslipidemia. We will start back on his statin medications. We will continue his Ranexa, as well as the Plavix. Job ID: [id number]
--- NOTE | 2019-01-10 15:29 | CON ---
DATE OF CONSULTATION: 01/10/2019 PRIMARY CARDIOLOGISTS: 1. Dr. Sumit Bunch, [facility] [place]. 2. Fe Neil MD. PRIMARY CARE PHYSICIAN: [facility] in [place], [place]. REASON FOR CARDIOLOGY CONSULT: Elevated troponin. HISTORY OF PRESENT ILLNESS: Mr. Babin is a 73-year-old male with a significant history of insulin-dependent diabetes, coronary artery disease with status post CABG in 2006, stent placement x2 in August 2018, hypertension, combined heart failure, dyslipidemia, and history of stroke x2 with left-sided weakness. The patient was doing well until yesterday when he started to feel nauseated all day yesterday and last night, prior to presenting to the emergency department. The patient vomited at least 15 to 16 times and he gagged very severely. When the patient was admitted to the emergency department, the patient was found to have blood glucose level more than 600. At this moment, the patient's insulin infusion was stopped. He is receiving IV fluid. Prior and after the patient admitted to the emergency department, he has not had any chest pain, heaviness, tightness, discomfort in his chest, dizziness, lightheadedness, or any cardiac complaints. He had a history of CABG x4 in 2006. The patient also underwent two stent placement with drug-eluted stent x2 in August 2018 at the [facility] [place]. He was told to take the Plavix and aspirin for at least one year. The patient had echocardiogram done in this hospital in November 2017 with EF of 30% to 35%, suggestive of grade 3 diastolic dysfunction, moderately enlarged right atrium size, mitral valve regurgitation, [id number] tricuspid regurgitation, mild pulmonic regurgitation, and [id number]-os-[id number] dilated left atrium. He had another echo at the [facility] in [place] in December 2017. However, he was suggested to have AICD placement at that time. He has a carotid Doppler done on November 2017, which shows no significant stenosis. PAST MEDICAL HISTORY: 1. Coronary artery disease. 2. Insulin-dependent diabetes mellitus. 3. Hypertension. 4. Combined congestive heart failure. Last EF was 30% to 35%. 5. Dyslipidemia. 6. History of CVA x2 with left-sided weakness. PAST SURGICAL HISTORY: 1. Status post right foot surgery. 2. Status post coronary artery bypass graft x4 in 2006. 3. Drug-eluting stent placement x2 in August 2018. FAMILY HISTORY: No early coronary artery disease per the patient's report. SOCIAL HISTORY: The patient is . They have two children, who are living well. No congenital heart disease. He is an ex-smoker. He quit smoking and drinking in 2006, when he had CABG. He denied illicit drug abuse. He exercises with stationary bicycle for 40 minutes at least 5 times a week. He drinks 2 coffee a day. When he exercise, he denies any chest pain, heaviness, or any other cardiac complaints. ALLERGIES: HE IS ALLERGIC TO NEOSPORIN. REVIEW OF SYSTEMS: A 12-point review of system is negative unless otherwise mentioned in the HPI. He has had right bright bloody stool within the last 3 months, secondary to internal hemorrhage. He has had a colonoscopy done. However, according to the patient, there are no surgical intervention during the entire colonoscopy procedure. PHYSICAL EXAMINATION: VITAL SIGNS: Blood pressure 136/69, heart rate 67, sinus rhythm, O2 saturation 98% on room air, and temperature is 98.5. GENERAL: The patient is alert and oriented x4, not in acute distress. HEENT: Head, normocephalic and atraumatic. Eyes, extraocular muscle movement intact. ENT and mouth, oral and nasal mucosa are moist without lesion. NECK: Supple. Normal range of motion. No bruits or thrill noted at the carotid arteries. RESPIRATORY: Clear to auscultation bilaterally, but diminished at the bases. CARDIOVASCULAR: Regular rate and rhythm. Normal S1, S2. No S3 or S4. No significant murmur, hives, or thrills noted at this moment. 2+ pulses in bilateral upper and lower extremities. No edema, but discoloration to the bilateral lower extremities. ABDOMEN: Soft, nontender. No mass to palpitate. Bowel sounds are present. SKIN: Warm and dry, but he had some discoloration to the bilateral lower extremities. He has a dressing to the left heel. MUSCULOSKELETAL: The patient is able to move all extremities. He needs minimal assist to get up due to left-sided weakness. NEUROLOGIC: The patient is alert and oriented x4. Nonfocal. PSYCHIATRIC: The patient's mood is appropriate. LABORATORY DATA: WBC 9.7, hemoglobin 11.2, hematocrit 34.8, platelets 168. Sodium 135, potassium 3.7, BUN 28, creatinine 1.40, glucose 85. CK-MB is 14.5. Troponin is 0.105, 0.934, 2.949. Sinus rhythm with T-wave inversion in lead I and ST depression in lead V3 to V6, but it is only one small box, 1 mm depression. ASSESSMENT AND PLAN: 1. Elevated troponin level. The last troponin level was 2.9. Another troponin will be order to see patient's troponin trending. At this moment, the patient is asymptomatic. The patient had cardiac catheterization since December 2017 to the present. History of stent placements x2 in August 2018. The patient's Plavix and aspirin are going to be resumed from today. We would like to continue to monitor the patient's condition. The patient's cath reports and echo results are already requested to the patient's primary care executive secretary in [place]. 2. Diabetic ketoacidosis, which is stable at this moment, which is managed by patient's primary care doctor. 3. Coronary artery disease with history of coronary artery bypass grafting and stent placement. The patient's Plavix and aspirin are going to be resumed. The patient is on metoprolol succinate 25 mg once a day. Crestor is going to be resumed from today. 4. Chronic combined heart failure. Under echo in 2018 showed EF 30% to 35% with diastolic dysfunction. At this moment, the patient is stable on room air. No complaint of shortness of breath or edema in the lower extremities. We would like to continue to monitor at this moment. 5. Hypertension. The patient's blood pressure is stable at this moment. 6. Acute on chronic kidney disease. The patient's creatinine level is improving. The patient is not on ALEX inhibitor or ARBs due to history of chronic kidney disease. 7. Hyperlipidemia. The patient's statin will be resumed from today. 8. Nausea and vomiting. The patient's condition is stable at this moment, which is managed by primary care doctor. Thank you for allowing the Cardiology Service to participate in the care of this patient. We will follow along the patient's care team and make further recommendations as appropriate. Job ID: [id number]
[2019-01-10 15:53] LABS: Troponin I 10.307 ng/mL (< 0.028)
[2019-01-10] MEDS ORDERED: Morphine 2 MG/ML SYRINGE SLOW IVP SCH (19:00)
[2019-01-10] MEDS: Melatonin 3 MG TAB PO SCH (20:50)
[2019-01-10] MEDS: Rosuvastatin 20 MG TAB PO SCH (20:50)
[2019-01-10] MEDS: Citalopram 20 MG TAB PO SCH (20:51)
[2019-01-10] MEDS: Heparin 5,000 UNITS/ML VIAL SC SCH (20:51)
--- NOTE | 2019-01-10 23:27 | CON ---
DATE OF CONSULTATION: 01/10/2019 HISTORY: Mr. Wall is a 73-year-old male who is admitted 4 o'clock this morning by Dr. Wei. He has had a prolonged period of vomiting leading up to this admission lasting a couple of days. He was found to have an elevated troponin. It is unclear at this time whether or not his vomiting was actually a manifestation of coronary ischemia or the vomiting was related to a viral enteritis and he just happened to come in with a positive troponin. He is typically followed at the [facility] in [place]. He denies nausea, vomiting, or pain at this time. PAST MEDICAL HISTORY: 1. Remarkable for coronary artery stenting twice in the past. 2. History of coronary artery bypass grafting x4 in 2006. 3. History of diabetes. 4. Hypertension. 5. History of congestive heart failure with decreased ejection fraction. 6. History of lipid disorder. 7. History of foot surgery. MEDICATIONS: Prior to admission, he was on aspirin, Celexa, Flexeril, fenofibrate, Lasix, gabapentin, Ismo, lisinopril, melatonin, metoprolol, potassium, Ranexa, Crestor, trazodone, NovoLog, and Ambien. ALLERGIES: REPORTS ALLERGIES TO NEOSPORIN. FAMILY HISTORY: Negative for lung disease in early age. SOCIAL HISTORY: He quit smoking 10 years ago. Does not drink. Lives in [place]. The last two hospitalizations he has had down at [facility]. REVIEW OF SYSTEMS: Ten point review of systems completed, otherwise negative. PHYSICAL EXAMINATION: GENERAL: Very pleasant gentleman, in no distress. VITAL SIGNS: 133/69, heart rate 57, respiratory rate 16, and oximetry is 98. HEENT: Pupils are equal. Sclerae are anicteric. Extraocular movements are full. NECK: Supple. LUNGS: Clear. HEART: Regular rhythm. S1, S2 normal. ABDOMEN: Soft and nontender. EXTREMITIES: Without clubbing, cyanosis, or edema. NEUROLOGIC: Grossly nonfocal. LABORATORY DATA: Troponins up to 10 this afternoon. Sodium 135, potassium 4.4, chloride 101, bicarb 23, BUN 27, and creatinine 1.5. IMPRESSION: 1. Diabetes, poorly controlled on admission with a glucose of 437. 2. Myocardial infarction. 3. Chronic kidney disease. 4. History of coronary artery stenting and coronary artery bypass grafting in the past. 5. History of systolic cardiomyopathy. 6. Obesity. At this point time, he appears to be stable. He is being followed by Cardiology. I will be happy to follow the other physicians caring for him. There are no respiratory issues currently. This is a 50 minute consult, with greater than 50% of time spent on unit coordinating care. Job ID: [id number] CRISTO
[2019-01-11 03:47] LABS: Hemoglobin 11.9 g/dL (14.0-18.0); Mean Corpuscular HGB CONC 32.9 g/dL (32.0-36.0); Mean Corpuscular Hemoglobin 30.4 pg (27.0-31.0); Mean Corpuscular Volume 92.6 fL (78.0-98.0); Mean Platelet Volume 9.4 fL (7.4-10.4); Platelet Count 130 thou/uL (130-400); RBC Distribution Width 13.1 % (11.5-14.5); White Blood Cell (WBC) Count 7.5 thou/uL (4.8-10.8)
[2019-01-11 04:04] LABS: Anion Gap 13 mmol/L (10-20); BUN (Urea Nitrogen) 26 mg/dL (8.4-25.7); Calc. Creatinine Clearance 61 mL/min (70-130); Calcium 8.2 mg/dL (7.8-10.44); Carbon Dioxide 24 mmol/L (23-31); Chloride 100 mmol/L (98-107); Estimated GFR-MDRD 46; Glucose 237 mg/dL (83-110); Potassium 4.6 mmol/L (3.5-5.1); Sodium 132 mmol/L (136-145)
[2019-01-11 04:14] LABS: Critical Call Chem Troponin I RESULT DECREASING; Troponin I 7.637 ng/mL (< 0.028)
[2019-01-11] MEDS ORDERED: Aspirin 81 mg Enteric Coated Tablet PO SCH (09:00)
[2019-01-11] MEDS: Aspirin 81 mg Enteric Coated Tablet PO SCH (09:39)
[2019-01-11] MEDS: Famotidine 20 MG TAB PO SCH ×2 (09:40→20:44)
[2019-01-11] MEDS: Clopidogrel Bisulfate 75 MG TAB PO SCH (09:40)
[2019-01-11] MEDS: Gabapentin 400 MG CAP PO SCH ×3 (09:40→20:44)
[2019-01-11] MEDS: Heparin 5,000 UNITS/ML VIAL SC SCH ×2 (09:40→20:45)
[2019-01-11] MEDS: HumaLOG 300 UNITS/3 ML VIAL SC PRN ×3 (09:47→20:48)
--- NOTE | 2019-01-11 09:49 | PDOC.CTH ---
Cardiology Progress Note - Subjective Pt. seen and eval. by me. He says he feels great this AM. Troponin -I is trending down. Peak was 10.0. one episode of chest discomfort yesterday PM . No EKG changes. - Objective Vital Signs Temp Pulse Ox 01/11/19 08:00 98.6 F 100 01/11/19 04:00 97.9 F 01/11/19 00:00 98.4 F Weight 3.298 oz 01/10/19 01/11/19 01/12/19 06:59 06:59 06:59 Intake Total 48 1439 0 Output Total 200 1931 300 Balance -152 -492 -300 - Physical Examination General/Neuro: alert & oriented x3 Neck: carotid US brisk, no JVD present Lungs: CTA Heart: RRR Abdomen: NT/ND, soft - Labs Result Diagrams: 01/11/19 03:38 01/11/19 03:38 Troponin/CKMB CK-MB (CK-2) 14.5 ng/mL (0-6.6) H* 01/10/19 01:48 Troponin I 7.637 ng/mL (< 0.028) H* 01/11/19 03:38 - Assessment/Plan 1. NSTEMI. Long history of CAD. 2 caths with stents in the last 6 months in [place], [place]. Diffuse disease per cath reports. The most recent stent was in the distal OM and was 2.5 mm. He reportedly has a distal LAD stenosis distal to the SIBLEY graft anastamosis. He may have occluded the distal LAd or the distal OM stent. He is doing better and the troponin -I is decreasing. I will increase the Ranexa. Continue plavix,ASA, subq heparin. Okay to transfer to [facility]. Continue medical treatment. No cath at this time. He prefers to follow up with Dr. Bunch in [facility]. I have contacted his office and am waiting to hear from the Digital Research Analyst. 2. DM: poorly controlled
--- NOTE | 2019-01-11 10:15 | PRG ---
DATE OF SERVICE: 01/11/2019 SUBJECTIVE: Mr. Wall had some chest pressure last night that he rated as 2/10. He was sitting up when it happened. He was put back in bed and it went away and he went to sleep. OBJECTIVE: VITAL SIGNS: He is afebrile, heart rate 56, blood pressure 115/84. Oximetry is 98% on room air. LUNGS: Clear. HEART: Regular rhythm. ABDOMEN: Soft. IMPRESSION: 1. Non-Q-wave myocardial infarction. 2. History of coronary artery disease. 3. Diabetes, poorly controlled with hemoglobin A1c of 15. 4. Chronic kidney disease with mild acute decompensation, that has improved. 5. Obesity. He wants the mid level game designer to talk to the mid level game designer in [place] to discuss his coronary situation. This is the hinge point for ongoing workup or discharge and work up as outpatient down there. That will be decided by the mid level game designer. He is stable to move out of Critical Care. In my opinion, if nothing is planned, although his episode of chest discomfort last night would lead me to believe that he has nonstable coronary artery disease. It is unclear however if this is coronary ischemia or not. Job ID: [id number]
[2019-01-11] MEDS ORDERED: Insulin Glargine 20 UNITS in Pre-Filled Syringe 1 EACH SC SCH (10:45)
[2019-01-11 13:35] VITALS: BMI 27.1
--- NOTE | 2019-01-11 18:05 | PDOC.PN ---
- Subjective Encounter Start Date: 01/11/19 Encounter Start Time: 09:02 Mr. Babin was seen today in follow-up of DKA and NSTEMI. He does not have any new complaints. He denies chest pain, nausea or vomiting. - Objective Resuscitation Status - Order Detail: 01/10/19 03:42 Resuscitation Status Routine Resuscitation Status: FULL: Full Resuscitation MAR Reviewed: Yes Vital Signs & Weight: Vital Signs (12 hours) Temp Pulse Ox 01/11/19 16:00 97.7 F 01/11/19 12:00 98.8 F 01/11/19 08:00 98.6 F 100 Weight Admit Weight 208 lb Weight 206 lb Most Recent Monitor Data Heart Rate from ECG 57 NIBP 128/72 NIBP BP-Mean 90 Respiration from ECG 25 SpO2 100 I&O: 01/10/19 01/11/19 01/12/19 06:59 06:59 06:59 Intake Total 48 1439 720 Output Total 200 1931 876 Balance -152 492 -156 Result Diagrams: 01/11/19 03:38 01/11/19 03:38 Additional Labs: Accuchecks 01/11/19 01/11/19 01/11/19 17:49 09:47 04:17 POC Glucose 294 H 271 H 234 H 01/11/19 01/10/19 00:05 20:47 POC Glucose 256 H 260 H Phys Exam - Physical Examination HEENT: PERRLA Respiratory: no wheezing, no rales, no rhonchi, clear to auscultation bilateral Cardiovascular: RRR, no significant murmur, no rub Gastrointestinal: soft, non-tender, no distention, positive bowel sounds Musculoskeletal: no edema, pulses present Dx/Plan (1) DKA, type 2 Code(s): E11.10 - TYPE 2 DIABETES MELLITUS WITH KETOACIDOSIS WITHOUT COMA Status: Acute (2) NSTEMI (non-ST elevated myocardial infarction) Code(s): I21.4 - NON-ST ELEVATION (NSTEMI) MYOCARDIAL INFARCTION Status: Resolved (3) CAD (coronary artery disease) Code(s): I25.10 - ATHSCL HEART DISEASE OF [place] CORONARY ARTERY W/O ANG PCTRS Status: Chronic Comment: CABG X4 2006 (4) HTN (hypertension) Code(s): I10 - ESSENTIAL (PRIMARY) HYPERTENSION Status: Chronic - Plan * DKA- resolved * DM- will re-start his home dose of insulin- He says he was taking 40 units of Lantus twice a day. Will start with 20 units, and see the effect, then titrate back up to 40 units * CAD- this will be managed medically, and patient will follow-up with his Can Washer in [facility] for further management * HTN - blood pressure is stable.
[2019-01-11] MEDS: Rosuvastatin 20 MG TAB PO SCH (20:44)
[2019-01-11] MEDS: Citalopram 20 MG TAB PO SCH (20:44)
[2019-01-11] MEDS: Melatonin 3 MG TAB PO SCH (20:46)
[2019-01-11] MEDS ORDERED: Insulin Glargine 40 UNITS in Pre-Filled Syringe 1 EACH SC SCH (21:00)
[2019-01-12] MEDS ORDERED: Zolpidem Tartrate 5 MG TAB PO PRN (01:28)
[2019-01-12] MEDS ORDERED: HYDROcodone/Acetaminophen 7.5/325 mg Tablet PO SCH (02:00)
[2019-01-12] MEDS: Famotidine 20 MG TAB PO SCH (07:45)
[2019-01-12] MEDS: Clopidogrel Bisulfate 75 MG TAB PO SCH (07:45)
[2019-01-12] MEDS: Gabapentin 400 MG CAP PO SCH ×2 (07:55→14:58)
[2019-01-12] MEDS: Aspirin 81 mg Enteric Coated Tablet PO SCH (07:55)
[2019-01-12] MEDS: Heparin 5,000 UNITS/ML VIAL SC SCH (07:56)
--- NOTE | 2019-01-12 08:08 | PRG ---
DATE OF SERVICE: 01/12/2019 SUBJECTIVE: More awake, alert, and responsive. Denies any pain, discomfort, or shortness of breath. OBJECTIVE: VITAL SIGNS: Blood pressure 114/53, pulse 54, he is afebrile. Sats 96% on room air, respiratory rate 18. CHEST: No wheezing or crackles. CARDIAC: Normal S1, S2. No gallops. ABDOMEN: Soft. NEUROLOGIC: Awake, alert, and responsive. Blood sugar is slightly elevated. IMPRESSION: 1. Status post [id number] myocardial infarction. History of coronary artery disease, previous catheterization. 2. Diabetes. PLAN: The patient can be transferred to the ICU. Continue cardiac care. Pulmonary will follow at a distance, once he is transferred out of the ICU. Job ID: [id number]
[2019-01-12] MEDS ORDERED: Insulin Glargine 20 UNITS in Pre-Filled Syringe 1 EACH SC SCH (09:00)
--- NOTE | 2019-01-12 09:19 | PDOC.PN ---
- Subjective Encounter Start Date: 01/12/19 Encounter Start Time: 09:17 Patient seen and examined. No new complaints. No overnight events. No chestpain or sob reported. No n/V. No fever - Objective Resuscitation Status - Order Detail: 01/10/19 03:42 Resuscitation Status Routine Resuscitation Status: FULL: Full Resuscitation MAR Reviewed: Yes Vital Signs & Weight: Weight Admit Weight 208 lb Weight 208 lb 8 oz Most Recent Monitor Data Heart Rate from ECG 59 NIBP 108/56 NIBP BP-Mean 73 Respiration from ECG 17 SpO2 95 I&O: 01/11/19 01/12/19 01/13/19 06:59 06:59 06:59 Intake Total 1439 1310 Output Total 1931 1876 Balance -492 -566 Result Diagrams: 01/11/19 03:38 01/11/19 03:38 Additional Labs: Accuchecks 01/12/19 01/11/19 01/11/19 05:38 20:43 17:49 POC Glucose 118 H 290 H 294 H 01/11/19 09:47 POC Glucose 271 H Phys Exam - Physical Examination Constitutional: NAD HEENT: sclera anicteric Neck: supple Respiratory: no wheezing, no rales Cardiovascular: no significant murmur Gastrointestinal: soft Musculoskeletal: no edema Neurological: non-focal, moves all 4 limbs Psychiatric: normal affect, A&O x 3 Dx/Plan (1) DKA, type 2 Code(s): E11.10 - TYPE 2 DIABETES MELLITUS WITH KETOACIDOSIS WITHOUT COMA Status: Resolved (2) NSTEMI (non-ST elevated myocardial infarction) Code(s): I21.4 - NON-ST ELEVATION (NSTEMI) MYOCARDIAL INFARCTION Status: Resolved (3) Acute on chronic systolic CHF (congestive heart failure) Code(s): I50.23 - ACUTE ON CHRONIC SYSTOLIC (CONGESTIVE) HEART FAILURE Status : Acute (4) CAD (coronary artery disease) Code(s): I25.10 - ATHSCL HEART DISEASE OF [place] CORONARY ARTERY W/O ANG PCTRS Status: Chronic Comment: CABG X4 2006 (5) DM2 (diabetes mellitus, type 2) Status: Chronic Qualifiers: Diabetes mellitus complication status: with hyperglycemia (6) HLD (hyperlipidemia) Code(s): E78.5 - HYPERLIPIDEMIA, UNSPECIFIED Status: Chronic (7) HTN (hypertension) Code(s): I10 - ESSENTIAL (PRIMARY) HYPERTENSION Status: Chronic (8) Ischemic cardiomyopathy Code(s): I25.5 - ISCHEMIC CARDIOMYOPATHY Status: Chronic - Plan cont current plan of care, plan discussed w/ family, PT/OT, respiratory therapy , out of bed/ambulate, DVT proph w/heparin * . No chestpain and blood sugars are controlled. will continue on lantus 20 units bid and monitor. home dose is 40 units bid. Pt wants to f/u with Dr Hernandez, his wildlife protector at [place] Appreciate input form cardiology and pulmonology. Troponin trending down and no heart cath planned here. reduce metoprolol dose to 12.5 mg po bid due to bradycardia. will monitor. Transfer to Tele. AM labs. monitor blood sugar.
[2019-01-12] MEDS: HumaLOG 300 UNITS/3 ML VIAL SC PRN (11:48)
[2019-01-12 12:38] VITALS: BP 122/69
--- NOTE | 2019-01-12 14:36 | EKG ---
Test Reason : Blood Pressure : / mmHG Vent. Rate : 085 BPM Atrial Rate : 064 BPM P-R Int : 000 ms QRS Dur : 114 ms QT Int : 398 ms P-R-T Axes : 000 008 148 degrees QTc Int : 473 ms Accelerated Junctional rhythm Abnormal ECG ST depression V3-V6 Confirmed by MARLEEN LICEA ([id number]), subeditor JUDY SANCHEZ ([id number]) on 01/12/2019 2:36:30 PM Referred By: Confirmed By:MARLEEN LICEA
[2019-01-12 15:43] VITALS: TEMP 97.4
[2019-01-12] MEDS ORDERED: Carvedilol 6.25 MG TAB PO SCH ×2 (17:00)
--- NOTE | 2019-01-12 22:48 | DIS ---
DATE OF ADMISSION: 01/10/2019 DATE OF DISCHARGE: 01/12/2019 DISCHARGE DIAGNOSES: 1. Diabetic ketoacidosis. 2. Non ST elevation myocardial infarction. 3. Coronary artery disease. 4. Type 2 diabetes. 5. Hyponatremia. 6. Hypertension. CONSULTS: Dr. Neil from Cardiology. Dr. Cali from Pulmonology. PROCEDURES: None. HOSPITAL COURSE: This is a 73-year-old male who was admitted to the hospital with vomiting. Please refer to the H and P for details. The patient was found to have DKA which was treated conservatively per protocol and got better. The patient remained poorly controlled diabetes though. The patient was also found to have elevated troponin. Cardiology was consulted. No acute intervention was done. Plan was to have him follow up with his primary dye stand loader, which was the preference from the patient to. No medication changes were done. The patient will be discharged home in stable condition with close followup with Cardiology and primary care physician. CONDITION ON DISCHARGE: Stable. DISPOSITION: To home. DISCHARGE MEDICATIONS: 1. Crestor 40 mg p.o. at bedtime. 2. Ranexa 500 mg p.o. b.i.d. 3. Metoprolol 12.5 mg p.o. daily. 4. Lisinopril 20 mg daily. 5. Imdur 30 mg at bedtime. 6. Gabapentin 1200 mg daily. 7. Lasix 40 mg daily. 8. Aspirin 81 mg daily. DISCHARGE FOLLOW: Follow up with his Cardiology, Dr. Bunch in one week. Follow up with primary care physician in one week. The patient was advised not to have any medication changes, but recently found to have bradycardia, so advised to reduce his metoprolol dose to 12.5 mg p.o. daily that is half the dose if heart rate less than 50. The patient was also advised to have close monitoring of his blood sugar at home with insulin administration. Please note that, I did spend more than 35 minutes coordinating the discharge care of this patient. Job ID: [id number]
--- NOTE | 2019-01-13 00:04 | CON ---
DATE OF CONSULTATION: HISTORY OF PRESENT ILLNESS: This patient has been in the hospital since the last 3 days. He has been in the hospital for 3 days now. He came in with unstable type angina, had a non ST-segment elevation myocardial infarction. His enzymes did trend upwards, but now have trended back down. He seems to be doing quite well. He had no further symptoms. I did discuss his case with his rn team leader in [place], who says the patient does have diffuse coronary disease. He did undergo a recent angioplasty and stent placement to the obtuse marginal branch of left circumflex and also to the distal obtuse marginal branch beyond the stented area. On a separate occasion, he did have some stenosis noted in the distal left anterior descending artery, but this was not intervened upon. His diabetes has been poorly-controlled and he has been advised on multiple times that he needs to keep his cholesterol under good control, but has failed to do so. PHYSICAL EXAMINATION: VITAL SIGNS: He was seen today and vital signs were stable. Blood pressure was 114/53, heart rate was 54 and regular, O2 saturations were 96% on room air. CHEST: Clear to auscultation. CARDIOVASCULAR: Revealed a regular rate and rhythm. There were no significant murmurs. EXTREMITIES: He had no lower extremity edema. NEUROLOGIC: He was awake. He has been ambulating without difficulties or complications. Blood sugar still remains somewhat elevated, but otherwise he is doing quite well. IMPRESSION: 1. Status post non ST-segment elevation myocardial infarction with a history of severe three-vessel coronary artery disease, had recently undergone angioplasty and stent placement. He will follow up with his primary rn team leader in [place], [place] in the next few weeks. I have advised him to give him a call on Monday, so they can make arrangements for followup. 2. History of diabetes, which has been under poor control. He has been advised he must absolutely get this under control. His blood sugar yesterday was 237 and since being in the hospital, it has ranged anywhere from 85-437. He did not undergo a cardiac catheterization at this facility. His peak troponin was 10 and I have discussed this also with his rn team leader in [place]. I believe it is reasonable to discharge the patient home and again he will follow up with his rn team leader in [place]. Job ID: [id number]
--- NOTE | 2019-01-14 22:28 | EKG ---
Test Reason : CP Blood Pressure : / mmHG Vent. Rate : 059 BPM Atrial Rate : 059 BPM P-R Int : 238 ms QRS Dur : 116 ms QT Int : 498 ms P-R-T Axes : 078 009 151 degrees QTc Int : 493 ms Sinus bradycardia with 1st degree A-V block Prolonged QT Abnormal ECG When compared with ECG of 10-JAN-2019 01:28, (Unconfirmed) Sinus rhythm has replaced Junctional rhythm ST no longer depressed in Anterior leads T wave inversion now evident in Anterior leads Confirmed by Paz BAILEY ([id number]) on 01/14/2019 10:28:29 PM Referred By: LEO Confirmed By:Paz BAILEY
== END 2019-01-12 16:15 | disposition home or self-care (01) | DRG 637 ==
LOC: ERS 01:11 → CCU 02:14
PROVIDERS: ADMIT Family Medicine; ATTEND Family Medicine
DX: E11.10 Type 2 diabetes mellitus with ketoacidosis without coma (principal); I21.4 Non-ST elevation (NSTEMI) myocardial infarction; N17.9 Acute kidney failure, unspecified; E87.1 Hypo-osmolality and hyponatremia; I69.954 Hemiplegia and hemiparesis following unspecified cerebrovascular disease affecting left non-dominant side; I50.42 Chronic combined systolic (congestive) and diastolic (congestive) heart failure; I13.0 Hypertensive heart and chronic kidney disease with heart failure and stage 1 through stage 4 chronic kidney disease, or unspecified chronic kidney disease; E11.65 Type 2 diabetes mellitus with hyperglycemia; I25.10 Atherosclerotic heart disease of native coronary artery without angina pectoris; E78.5 Hyperlipidemia, unspecified; F32.9 Major depressive disorder, single episode, unspecified; E66.9 Obesity, unspecified; I25.5 Ischemic cardiomyopathy; N18.9 Chronic kidney disease, unspecified; Z95.1 Presence of aortocoronary bypass graft; Z95.5 Presence of coronary angioplasty implant and graft; Z79.82 Long term (current) use of aspirin; Z79.4 Long term (current) use of insulin; Z79.899 Other long term (current) drug therapy; Z68.27 Body mass index [BMI] 27.0-27.9, adult
CPT/HCPCS: 36415; 36416; 80048; 82010; 82553; 83036; 84484; 85027; 90471; 90670; 93005; 93010; 93798; 96365; G0009; J1644; J1815; J1825; J2270; J3480; J3490